=== PATIENT | female | born 1995 | race Caucasian/White ===

== ENCOUNTER 2023-08-14 04:40 | Inpatient (IN) | payer OTHER, SELFPAY ==
[2023-08-14] VITALS (109 sets, daily range): BP systolic 92–129; BP diastolic 46–99; PULSE 55–97; RESP 12–18; TEMP 36.3–37.2; O2SAT 97–100; BMI 28.3
--- NOTE | 2023-08-14 05:27 | LDADM ---
This patient, Nivia Zimmer, was admitted to Labor/Delivery/Recovery 104 on 08/14/23 at 04:40. Plans for labor, pain management and were discussed with patient. Patient/family oriented to hospital policies and general routines including ID bracelet, bed and alarms, visiting hours, pain management, procedures, bathroom and other care routines, personal items, smoking policy, room service/diet and guest tray routines, security routines, and visiting hours. Patient/Family are encouraged to report perceived risks to care and to ask questions if they do not understand what they are told or what they should do. See OBIX for further documentation.
[2023-08-14] MEDS: LACTATED RINGERS 1,000 ML 125 ML IV CONT ×2 (06:01→07:04)
[2023-08-14 06:47] LABS: Basophils Absolute Auto 0.1 K/mm3 (0.0-0.1); Basophils Percent Auto 0.4 % (0.2-1.2); Eosinophils Absolute Auto 0.1 K/mm3 (0-0.3); Eosinophils Percent Auto 0.4 % (0-4.4); Hematocrit 31.1 % (37.0-47.0); Hemoglobin 9.7 g/dL (12.0-15.0); Immature Granulocyte Absolute 0.27 K/mm3 (0.00-0.031); Immature Granulocyte Percent A 1.7 % (0-0.5); Immature Platelet Fraction Pct 15.1 % (0.9-11.2); Lymphocytes Absolute Auto 1.98 K/mm3 (0.9-3.2); Lymphocytes Percent Auto 12.1 % (18.3-44.2); Mean Corpuscular HGB Conc 31.2 g/dl (32-36); Mean Corpuscular Volume 73.7 fl (80-100); Monocytes Absolute Auto 0.8 K/mm3 (0.1-0.6); Monocytes Percent Auto 4.7 % (2.6-8.5); Neutrophils Absolute Auto 13.2 K/mm3 (1.3-6.7); Neutrophils Percent Auto 80.7 % (45.5-73.1); Platelet Count Result 139 k/mm3 (150-375); Red Blood Count 4.22 M/mm3 (4.2-5.4); Red Cell Distribution Width 15.2 % (11.5-14.5); White Blood Count 16.3 K/mm3 (4.5-10.0)
[2023-08-14 07:00] LABS: Hypochromasia 1+ (NORMAL); Microcytosis 1+ (NORMAL); Schistocytes None Seen (NORMAL); Tear Drop Cells 1+ (NORMAL)
[2023-08-14 07:01] LABS: HIV 1/2 Ab P24 Ag Result Negative (Negative)
--- NOTE | 2023-08-14 07:03 | WPDANESEPP ---
Anes - Eval Pre Procedure Procedure: labor epidural Date/Time: 08/14/23 07:03 Surgeon: Jovon Preop Diagnosis: pain during labor Pre Op Diagnosis: Induction of Labor Patient Data Age: 28 Gender: F Height: 1.65 m Weight: 77.111 kg Last Vital Signs Pulse 64 08/14/23 05:45 BP 114/68 08/14/23 05:45 O2 Del Method Room Air 08/14/23 05:26 Allergies Allergy/AdvReac Type Severity Reaction Status Date / Time Sulfa (Sulfonamide Allergy Hives Verified 07/14/23 13:41 Antibiotics) Home Medications Medication Instructions Recorded Confirmed Type loratadine 10 mg tablet (Claritin) mg 07/14/23 History prenat.vits,clayton,ifh-kynl-bjoyj tablet 07/14/23 History Laboratory Tests 08/14/23 08/14/23 05:37 06:38 WBC 16.3 H K/mm3 (4.5-10.0) RBC 4.22 M/mm3 (4.2-5.4) Hgb 9.7 L g/dL (12.0-15.0) Hct 31.1 L % (37.0-47.0) MCV 73.7 L fl (80-100) MCH 23.0 L pg (26-34) MCHC 31.2 L g/dl (32-36) RDW 15.2 H % (11.5-14.5) Plt Count 139 L k/mm3 (150-375) MPV TNP Immature Gran % (Auto) 1.7 H % (0-0.5) Neut % (Auto) 80.7 H % (45.5-73.1) Lymph % (Auto) 12.1 L % (18.3-44.2) Dolores % (Auto) 4.7 % (2.6-8.5) Eos % (Auto) 0.4 % (0-4.4) Baso % (Auto) 0.4 % (0.2-1.2) Lymph # (Auto) 1.98 K/mm3 (0.9-3.2) Dolores # (Auto) 0.8 H K/mm3 (0.1-0.6) Eos # (Auto) 0.1 K/mm3 (0-0.3) Baso # (Auto) 0.1 K/mm3 (0.0-0.1) Abs Immat Gran (auto) 0.27 H K/mm3 (0.00-0.031) Absolute Neuts (auto) 13.2 H K/mm3 (1.3-6.7) Absolute Nucleated RBC 0.0 K/mm3 (0.0-0.012) Nucleated RBC % 0.0 % (0.0-0.2) Platelet Estimate Slightly decreased (Adequate) % Immature Plt Fraction 15.1 H % (0.9-11.2) Hypochromasia 1+ (NORMAL) Microcytosis 1+ (NORMAL) Tear Drop Cells 1+ (NORMAL) Schistocytes None seen (NORMAL) RPR Pending HIV 1&2 Ab/P24 Ag 4thGn Negative (Negative) Blood Type O Positive Antibody Screen Pending Patient hx anesthesia problems: none Family hx anesthesia problems: none Results Review: All pre-operative results and documents have been reviewed as part of the pre-operative evaluation. [facility] Social History Social History Smoking status: Never smoker Second hand tobacco smoke exposure: Yes Substance use: never Lack of Transportation: No Lack of Food: Never True Current Housing: I Have Housing Concerned About Future Housing: No Difficulty Paying Gas/Electric Bills: No Difficulty Paying for Meds: No Currently Unemployed: No Education: Bachelor's Degree Difficulty w/ Childcare or Family Care: No Spiritual care concerns: No Exam Day of Procedure 08/14/23 07:03 Patient weight: normal Heart: regular rate and rhythm Lungs: normal air movement Airway: Mallampati scale class II Neurological: alert and oriented
--- NOTE | 2023-08-14 09:34 | WPDOBADMIT ---
Obstetrics - Admit Note Admission Note: record reviewed. Additions to the history and/or subsequent changes in the physical findings follow. 28 y/o G1 at 40 3/7 weeks here with contractions. Labor diagnosed. Now comfortable with epidural. GBS neg. AVSS NST reactive TOCO: contractions every 2-3 min ABD soft, nontender, gravid, vertex EXT nontender Cervix 7-8/100/-1. AROM with clear fluid. Vertex. A: IUP at term with labor. P: Anticipate .
[2023-08-14] MEDS: OXYTOCIN 30 UNITS/NS 500 ML 30 UNITS/500 ML BAG 999 UNITS IV CONT (11:44)
--- NOTE | 2023-08-14 12:01 | PM.OBPRVD ---
OB - Vaginal Delivery Note Procedure Delivery date: 08/15/23 Induction method: None Delivery augmentation: Rupture of Membranes Delivery monitor: External FHT and External Uterine Route of delivery: Episiotomy description: None Laceration Description: Periurethral (right) and Perineal - 2nd Degree Delivery repair: vicryl (3-0) Specimen: Yes (cord blood) Quantitative Blood Loss (ml): 80 Anesthesia type: Epidural Disposition: PACU Complications: None Narrative: 28 y/o G1 at 40 3/7 weeks gestation who presented to the hospital with contractions. Labor was diagnosed. She received an epidural. Amniotomy was performed with return of clear fluid. Her labor progressed without stimulation, and her cervix dilated completely. She pushed with good effort and delivered the infant's head to the perineum, followed by the body. The nose and mouth were bulb suctioned. After a delay, the cord was clamped and cut. The was handed off the field. Cord blood was collected. The placenta delivered spontaneously and was grossly normal in appearance. The usual 3 vessel cord was noted. A second degree midline perineal laceration was sustained. This was reapproximated using 3 0 Vicryl in the usual layered fashion. A right periurethral laceration was reapproximated using a single figure of eight suture of the same material. Excellent hemostasis resulted as did excellent reapproximation of the normal anatomy. Needle and instrument counts were correct. The patient was taken to recovery room in stable condition. The went to the nursery in stable condition. I was present and scrubbed for the entire delivery. Baby Date of : 08/14/23 Time of : 11:41 Weeks of gestation at delivery: 40 gender: Female Weight (pounds): 7 Weight (ounces): 7 presentation: vertex position: Left Occiput Anterior Placenta delivery description: Spontaneous and Normal Configuration Cord Vessel Description: 3 Vessels and Delayed Cord Clamping score one minute: 9 score five minutes: 9
--- NOTE | 2023-08-14 12:03 | PM.OBDSVD ---
DS: Admitting Diagnosis Discharge Date 08/16/23 Admitting Diagnosis IUP at 40 3/7 weeks Labor DS: Discharge Diagnosis Discharge Diagnosis (1) (normal spontaneous vaginal delivery): Code(s): O80 - Encounter for full-term uncomplicated delivery Status: Acute OB - DS: Summary OB Procedures : None OB Procedures Intrapartum: Spontaneous Vag Delivery OB Procedures: : None Peripartum Data Laceration Description: Periurethral (right) and Perineal - 2nd Degree Episiotomy description: None Time Spent with Patient Time attestation: Total time spent providing and/or coordinating discharge services: DS: Data Data Completed and Pending Labs on day of discharge: Labs from last 24 hours 08/14/23 08/14/23 06:38 05:37 WBC 16.3 H RBC 4.22 Hgb 9.7 L Hct 31.1 L MCV 73.7 L MCH 23.0 L MCHC 31.2 L RDW 15.2 H Plt Count 139 L MPV TNP Immature Gran % (Auto) 1.7 H Neut % (Auto) 80.7 H Lymph % (Auto) 12.1 L Mayes % (Auto) 4.7 Eos % (Auto) 0.4 Baso % (Auto) 0.4 Lymph # (Auto) 1.98 Mayes # (Auto) 0.8 H Eos # (Auto) 0.1 Baso # (Auto) 0.1 Abs Immat Gran (auto) 0.27 H Absolute Neuts (auto) 13.2 H Absolute Nucleated RBC 0.0 Nucleated RBC % 0.0 Platelet Estimate Slightly decreased % Immature Plt Fraction 15.1 H Hypochromasia 1+ Microcytosis 1+ Tear Drop Cells 1+ Schistocytes None seen RPR Pending HIV 1&2 Ab/P24 Ag 4thGn Negative Blood Type O Positive Antibody Screen Negative Discharge Plan Discharge Attending physician on discharge: Rey Sigala Discharging Clinician: Rey Sigala Patient Disposition: Home, Self-Care Activity: pelvic rest Diet: regular Discharge Instructions: Call or return if temperature above 100.4? F, increased abdominal pain, increased vaginal bleeding or any new problems. Stand Alone Forms: General Discharge Information Follow-up/Referrals: Rey Sigala MD [Physician] - 6 Weeks Discharge Medications: New ferrous sulfate 325 mg (65 mg iron) tablet 325 mg PO DAILY Qty: 30 0RF ibuprofen 600 mg tablet 600 mg PO Q6H PRN (Reason: cramps) Qty: 30 0RF Continued loratadine [Claritin] 10 mg Tablet prenat.vits,clayton,ccf-rmyn-eizss Tablet Date of admission: 08/14/23 04:40 Primary Care Provider: PHYSICIAN,EMERGENCY MEDICINE SPECIALIST Admitting Provider: Rey Sigala Attending physician on admission: Rey Sigala Condition: Stable
[2023-08-14] MEDS: WITCH HAZEL 40 PADS 1 PAD TOPICAL (14:47)
[2023-08-14] MEDS: BENZOCAINE 20% AER SPR (*SP) 56 GM CAN 1 SPRAY TOPICAL (14:47)
--- NOTE | 2023-08-14 15:02 | OBPPTRN ---
Patient transferred to post room #285 via wheelchair. Support person present. Oriented to unit, room, information board, rooming in, admission packet and security measures. Patient verbalizes understanding.
[2023-08-14] MEDS: POLYSACCHARIDE IRON COMPLEX 150 MG CAPSULE PO (17:14)
[2023-08-14] MEDS: DOCUSATE SODIUM 100 MG CAPSULE PO (17:15)
[2023-08-14] MEDS: IBUPROFEN 600 MG TABLET PO (19:29)
[2023-08-15] MEDS: IBUPROFEN 600 MG TABLET PO ×3 (03:35→16:52)
[2023-08-15 04:55] LABS: Hematocrit 32.2 % (37.0-47.0); Hemoglobin 9.9 g/dL (12.0-15.0)
--- NOTE | 2023-08-15 07:41 | WPDANLDPN2 ---
Anes-Prog Note L&D Date/Time: 08/15/23 07:41 Comfortable throughout: labor and delivery Neuraxial method: epidural Epidural/Spinal procedure site: clean & non-tender Neuro status: Neuro function grossly intact. Cardiovascular status: normal Respiratory status: normal Airway patency: baseline Mental status: baseline Post-Op hydration status: normal Vital Signs: Last Vital Signs Temp 36.8 C 08/14/23 23:00 Pulse 78 08/14/23 23:00 Resp 18 08/14/23 23:00 BP 108/69 08/14/23 23:00 Pulse Ox 99 08/14/23 23:00 O2 Del Method Room Air 08/14/23 23:00 Pain score (VAS): 2/10 I/O: Intake & Output 08/14/23 08/14/23 08/15/23 15:59 23:59 07:59 Intake Total 1500 240 Output Total 150 Balance 1350 240 Post-procedural complaints: none Patient feedback: Patient satisfied with anesthetic care.
[2023-08-15 08:00] VITALS: BP 114/56; PULSE 67; RESP 16; TEMP 36.1; O2SAT 99
[2023-08-15] MEDS: POLYSACCHARIDE IRON COMPLEX 150 MG CAPSULE PO ×2 (08:18→16:53)
[2023-08-15] MEDS: DOCUSATE SODIUM 100 MG CAPSULE PO ×2 (08:18→16:53)
[2023-08-15] MEDS: MULTIVIT/MIN/PREN/FOL AC/IRON TABLET 1 TAB PO (08:18)
--- NOTE | 2023-08-15 08:47 | PM.OBPNVD ---
OB - PN: Subj Subjective Date/time seen: 08/15/23 08:47 Narrative: Pain OK. OB - PN: Obj Data Labs 08/15/23 04:17 Labs: Laboratory Results - last 24 hr 08/15/23 04:17 Hgb 9.9 L Hct 32.2 L OB - PN A/P Plan Comments: A: PPD#1, doing well. P: Routine care. Exam Psych: Other: AVSS ABD soft, nontender, fundus firm EXT nontender
--- NOTE | 2023-08-15 13:24 | PC.NURSE ---
[id number] Introductions were made, then consulted with patient to assess needs related to . Mother led the conversation with her?plans to feed?her infant, the?experience so far and the nipple pain from earlier sessions. Mother works well with her infant with encouragement, education and has good support persons. Encouraged understanding of the benefits of skin to skin (demonstrating unwrapping infant and placing upright on her chest), stimulating with massage touch, changing positions to encourage wakefulness, how to watch for early feeding cues, responsive feeding, hand expression to encourage latching and milk removal, feeding on demand (aiming for 8-12 times in 24 hours, about every 2-3 hours), milk production, building/maintaining a milk supply, duration of feeding, signs of adequate intake/output and how to record on the feeding sheet. Reviewed positioning and ear, shoulder, hip alignment, supporting the breast to facilitate a deep latch, asymmetrical latch (off-center), leading with the chin with a big, open, wide gape and body close to mother. latched optimally to the right, then the left breast in football position. Education given to mother of how to visualize suck/swallow ratios and listen for drinking at the breast which demonstrated well. was able to maintain latch without discomfort to mother. Nipple care reviewed with optimal latch and good positioning. at times latches only to mothers nipple. RN encouraged understanding of the difference between a deep latch versus shallow watching for swallows. Reminding mother of comfort measures of healing with a warm and wet washcloth to rinse breast, then leave open to air-dry as needed. Reviewed good handwashing when or touching the breast/nipples to prevent infection. Resources used to facilitate learning were used with the visual handouts, tool, mom and baby guide. Mother voiced understanding of skin to skin, stimulating with massage touch, responsive feedings, hand expressed colostrum, talking to infant to encourage if it has been 2 -2.5 hours since the start of the last , to call if does not latch, or if there is discomfort with . Resources provided for inpatient/outpatient with feeding sheet, name written on the communication board and the mom/baby guide. Mother voiced understanding of information, demonstrated learning and will call if there is a request for assistance. Reported to the Primary RN.
[2023-08-15 13:35] LABS: Rapid Plasma Reagin Non-Reactive (NonReactive)
[2023-08-15 20:33] VITALS: BP 106/66; PULSE 79; RESP 16; TEMP 37.1; O2SAT 99
[2023-08-16 07:50] VITALS: BP 105/66; PULSE 78; RESP 16; TEMP 37.1; O2SAT 97
[2023-08-16] MEDS: POLYSACCHARIDE IRON COMPLEX 150 MG CAPSULE PO (07:58)
[2023-08-16] MEDS: MULTIVIT/MIN/PREN/FOL AC/IRON TABLET 1 TAB PO (07:58)
[2023-08-16] MEDS: DOCUSATE SODIUM 100 MG CAPSULE PO (07:58)
--- NOTE | 2023-08-16 08:41 | PM.OBPNVD ---
OB - PN: Subj Subjective Date/time seen: 08/16/23 08:41 Narrative: Pain OK. Would like to go home. OB - PN: Obj Data Labs 08/15/23 04:17 Labs: Laboratory Results - last 24 hr 08/14/23 05:37 RPR Non-reactive OB - PN A/P Plan Comments: A: PPD#2, doing well. P: Home to f/u 6 weeks. Exam Psych: Other: AVSS ABD soft, nontender, fundus firm EXT nontender
--- NOTE | 2023-08-16 12:18 | PC.NURSE ---
1015 Patient viewed the discharge video Mother & Baby Care, The First Two Weeks . Patient was given the opportunity and encouraged to ask questions. Patient verbalized understanding of information shared and has been given the mother/baby guide for home reference.
[2023-08-17 11:15] VITALS: BP 101/51; PULSE 66; RESP 18; TEMP 36.8; O2SAT 100
== END 2023-08-16 11:05 | disposition home or self-care (01) | DRG 807 ==
LOC: ANHLDR 12:04 → ANHOB2 15:28
PROVIDERS: Admitting Provider Obstetrics & Gynecology; Visit Provider Obstetrics & Gynecology
DX: O70.1 Second degree perineal laceration during delivery (principal); Z37.0 Single live birth; Z3A.40 40 weeks gestation of pregnancy
CPT/HCPCS: 36415; 85014; 85018; 85025; 85055; 86592; 86703; 86850; 86900; 86901; A9270; G0432; J2590; J2795; J7120

== ENCOUNTER 2025-07-11 07:45 | Outpatient (CLI) | payer OTHER, SELFPAY ==
[2025-07-11 08:38] LABS: Beta HCG Quantitative 4611.10 mIU/ML
== END 2025-07-11 07:46 | disposition home or self-care (01) ==
LOC: ANHLAB 07:48
PROVIDERS: Visit Provider Obstetrics & Gynecology
DX: O20.9 Hemorrhage in early pregnancy, unspecified (principal); Z3A.00 Weeks of gestation of pregnancy not specified
CPT/HCPCS: 36415; 84702

== ENCOUNTER 2025-07-15 08:47 | Outpatient (CLI) | payer OTHER, SELFPAY ==
--- OUTSIDE RECORDS SUMMARY | 2025-07-15 09:11 | XMS_ITS | Clinical Summary ---
Author Organization [facility] Address [address] [place] [id number] Care Team Providers Care Supervisor Dyer Name Role Phone Roberto Johnson MD Primary Care Provider + Allergies Active Allergy Reactions Criticality Noted Date Comments Sulfa (Sulfonamide Antibiotics) Hives,Urticaria Medium 05/20/2016 Medications valACYclovir (VALTREX) 500 mg tablet prn 0 Active etonogestreL (NEXPLANON) 68 mg implantIndications : Contraception Active loratadine (CLARITIN) 10 mg tablet Take 10 mg by mouth daily Active esomeprazole DR (NexIUM) 20 mg capsule TAKE 2 CAPSULES (40 MG TOTAL) BY MOUTH DAILY BEFORE BREAKFAST 30 capsule 3 1 Active Protonix 40 mg EC tablet Take 1 tablet (40 mg total) by mouth daily 3 Active Active Problems Problem Noted Date Diagnosed Date Vaginal bleeding 07/10/2025 of unknown anatomic location 5 Overview (07/12/2025): Telephone Number Lissett Byrd [phone] (home) Home Yes [phone] Spouse No [] PUL Card Given Working Diagnosis: PUL Date presented: 07/12/25 Brief HPI: 30 y.o. at approximately 6w4d (LMP=05/24/2025) presents with PUL. Had bHCG followed at OSH w/ normal rise but came to [facility] Ed w/ cramping/VB Ultrasound: TVUS: Empty uterus, no adnexal masses Rh Status: O Positive [] Rhogam Given Beta Trend: Had betas at [facility] in [place], [place] w/ appropriate rise: 07/01: 230 07/03: 725 07/09: bHCG 2843 ([facility] lab). US w/o YS/FP, no e/o ectopic. 07/12: Spoke to patient over the phone, she had fUS with primary OBGYN ([facility] in [place], [place]) with c/f ectopic, she got MTX, her primary OBGYN will be following her beta trend. She declines to return to [facility] and prefers to follow with her primary OBGYN. Discussed with attending, ok to discharge from our BB follow list. Lab Results Component Value Date HCG 2,843.0 (H) 07/09/2025 PLAN Next beta due: N/A, will follow with primary OBGYN in [place] Contraception: TBD [x] Signed out with attending and okay to remove from beta book. Attending Name: Amy Carlisle Gastroesophageal reflux disease 04/24/2021 Syncope 03/21/2014 Estimated Date of Delivery Comme nts Yes 02/28/2026 Based on last me nstrual period of 05/24/2025 Encounters Date Type Department Care Team Description 07/12/[address] [facility] [address] [place] [address] Anu Riley MD 07/09/2025 3:03 PM CDT - 07/09/2025 7:36 PM CDT Emergency [facility] Emergency Department [address] [place] [phone] Adrian Mccain MD Vaginal bleeding (Primary Dx); Left lower quadrant abdominal pain Discharge Disposition: Discharge to home or self care from Last 3 Months Surgical History Surgery Date Site/Laterality Comments APPENDECTOMY Medical History Medical History Date Comments GERD (gastroesophageal reflux disease) Family History Medical History Relation Name Comments Hypertension Mother Relation Name Status Comments Mother Social History Tobacco Use Types Packs/Day Years Used Date Smoking Tobacco: Never Personal Safety Answer Date Recorded Have you ever been in or are you currently in a harmful physical or emotional relationship or is someone making you feel afraid or unsafe? Denies 07/09/2025 Estimated Date of Delivery Comme nts Yes 02/28/2026 Based on last me nstrual period of 05/24/2025 Sex and Gender Information Value Date Recorded Sex Assigned at Not on file Legal Sex Female 10:32 PM TROUBLE LOCATER Gender Identity Not on file Sexual Orientation Not on file Obstetrics History Para Term AB IAB SAB Ectopic Multiple Livin g Live Births 2 1 1 1 1 Date Outcome GA Total Labor Labor/2nd/3rd Weight Sex Type Anes PTL Lolis A1 A5 Name Clin Term Vaginal Living Current Summary Episode Dates Number of Fetuses Estimated Date of Delivery 07/09/2025 - Present (07/15/2025) 02/28/2026 (set by Bette Hinton MD on 07/09/2025 based on Last Menstrual Period on 05/24/2025) Dating Summary Based On SUSANA GA Diff Last Menstrual Period on 05/24/2025 02/28/2026 Working Vitals Pregravid Weight Height TWG (As of 07/15/2025) Pregrav id BMI 165.1 cm (5' 5) Date GA Fund Present FHR Mvmt BP Weight Edema Alb Glu Ket Dil/ Eff/Sta 6w4d Inpatient data not displayed here. See encounter summary. Last Filed Vital Signs Vital Sign Reading Time Taken Comments Blood Pressure 121/68 07/09/2025 7:35 PM CDT Pulse 87 07/09/2025 7:35 PM CDT Temperature 37 C (98.6 F) 07/09/2025 2:22 PM CDT Respiratory Rate 18 07/09/2025 7:35 PM CDT Oxygen Saturation 97% 07/09/2025 2:22 PM CDT Inhaled Oxygen Concentration - - Weight 73.5 kg (162 lb) 07/09/2025 2:22 PM CDT Height 165.1 cm (5' 5) 07/09/2025 2:22 PM CDT Body Mass Index 26.96 07/09/2025 2:22 PM CDT Plan of Treatment Health Maintenance Due Date Last Done Comments Cervical Cancer Screening 1997 Depression Screening 1997 Hepatitis C Screening 1997 Meningococcal B Vaccine (1 o f 4 - Increased Risk) 05/24/2009 04/26/2009 Regular Well Visit/Exam 18-64 2015 Pneumococcal vaccine <65 (1 of 2 - PCV) 2016 HPV Vaccines (1 - 3-dose SCD M series) 2024 Influenza Vaccine (#1) 2025 , 08/05/2023, 08/24/2022, Additional history exists DTaP/Tdap/Td Vaccine (8 - Td or Tdap) 06/07/2033 06/07/2023, 08/25/2018, 04/26/2009, Additional history exists Hepatitis B Screening Completed 02/26/1998 , 1997, 1997 Varicella Vaccines Completed 04/18/2007, 04/19/2002 Procedures Procedure Name Priority Date/Time Associated Diagnosis Comments POCT GLUCOSE DEVICE Routine 07/09/2025 5 :32 PM CDT POCUS FEMALE TVUS, 07/09/2025 4:21 PM CDT URINALYSIS, MICROSCOPIC ONLY Routine 07/09/2025 3:58 PM CDT URINALYSIS AND REFLEX TO MICROSCOPIC AND CULTURE Routine 07/09/2025 3:58 PM CDT COMPREHENSIVE METABOLIC PANEL STAT 07/09/2025 2:50 PM CDT EGFR STAT 07/09/2025 2:50 PM CDT DIFFERENTIAL AUTO STAT 07/09/2025 2:5 0 PM CDT ABO/RH STAT 07/09/2025 2:50 PM CDT HCG, BLOOD, QUANTITATIVE STAT 07/09/2025 2:50 PM CDT CBC WITH AUTO DIFFERENTIAL STAT 07/09/2025 2:50 PM CDT from Last 3 Months Results * POCT glucose (07/09/2025 5:32 PM CDT) Glucose, POC 88 70 - 199 mg/dL Blood 07/09/2025 5:32 PM CDT 07/09/2025 5:32 PM CDT Adrian Mccain MD LAB POCT ORDERABLES - DEVICE Final Result [facility] Department [place] [address] * POCUS Female TVUS, (07/09/2025 4:21 PM CDT) Anatomical Region Laterality Modality Other 07/09/2025 4:11 PM CDT Narrative 07/09/2025 4:27 PM CDT Performed by: Ming Bustos TVUS: Exam Information: Exam type: Diagnostic Indication(s) for Exam: Quantitative hCG (+) Findings: IUP: Indeterminate Intrauterine contents : Non-specific endometrial fluid collection Pelvic free fluid: Small Interpretation: of undetermined location (PUL) Electronically signed by Adrian Mccain on Wednesday, July 09, 2025 at 4:27 PM I have reviewed the images & the resident's interpretation. I agree with the findings. Images on file. Electronically signed by Wesly Mix on Wednesday, July 09, 2025 at 5:28 PM I have reviewed the images & the resident's interpretation. I agree with the findings. Images on file. Procedure Note Adrian Mccain MD - 07/09/2025 Performed by: Ming Bustos TVUS: Exam Information: Exam type: Diagnostic Indication(s) for Exam: Quantitative hCG (+) Findings: IUP: Indeterminate Intrauterine contents : Non-specific endometrial fluidcollection Pelvic free fluid: Small Interpretation: of undetermined location (PUL) Electronically signed by Adrian Mccain on Wednesday, July 09, 2025 at4:27 PM I have reviewed the images & the resident's interpretation. I agree withthe findings. Images on file. Electronically signed by Wesly Mix on Wednesday, July 09, 2025 at5:28 PM I have reviewed the images & the resident's interpretation. I agree withthe findings. Images on file. us Adrian Mccain MD POCUS ORDERABLES Edite d Result - Final * (ABNORMAL) Urinalysis reflex to microscopic and culture Urine (07/09/2025 3:58 PM CDT) Color, ur Straw Yellow Clarity, ur Clear Clear [facility] Specific gravity, ur 1.006 1.003 - 1.030 [facility] pH, urine 6.5 [facility] Comment: Interpretive Data U rine pH is affected by diet, medications, systemic acid-base disturbances, and renal tubular function. pH may affect urinary stone formation. For example, urine pH below 6.0 may help reduce the tendency for calcium phosphate stones and pH greater than 6.0 may reduce the tendency for uric acid stone formation. Source: [facility] [employer] Current Interpretive Data was last revised on 2017 Protein, ur ql Negative Negative [facility] Glucose, ur ql Negative Negative [facility] Ketones, ur Negative Negative [facility] Bilirubin, ur Negative Negative [facility] Blood, ur 2+(A) Negative [facility] Urobilinogen, ur <2.0 <2.0 mg/dL [facility] Nitrite, ur Negative Negative [facility] Leukocyte esterase, ur Negative Negative [facility] UA reflex comment Reflex to microscopic UA will be performed. [facility] Urine 07/09/2025 3:58 PM CDT 07/09/2025 4:05 PM CDT us Morgan Montero MD LAB MICROBIOLOGY - GENER AL ORDERABLES Final Result [facility] Department [place] [address] * (ABNORMAL) Urinalysis, microscopic only (07/09/2025 3:58 PM CDT) WBC, ur 0-5 0 - 5 /HPF RBC, ur 0-2 0 - 2 /HPF [facility] Epithelial cells, squamous, ur 1-5 0 - 5 /HPF [facility] Bacteria, ur Trace(A) [facility] Culture Reflex Comment Reflex conditions for urine culture (WBC >10) not met. [facility] Urine 07/09/2025 3:58 PM CDT 07/09/2025 4:05 PM CDT us Morgan Montero MD LAB URINE ORDERABLES Fin al Result Performing Organization Address [facility] Co de Phone Number [facility] Department [place] [address] * eGFR (07/09/2025 2:50 PM CDT) Pathologist [facility] eGFR >90 >=60 mL/min/1. 73 m2 Comment: Interpretive Data Reference Interval Normal >/= 90 mL/min/1.73m2 Mildly decreased* 60 - 89 mL/min/1.73m2 Mildly to moderately decreased 45 - 59 mL/min/1.73m2 Moderately to severely decreased 30 - 44 mL/min/1.73m2 Severely decreased 15 - 29 mL/min/1.73m2 Kidney Failure < 15 mL/min/1.73m2 *Relative to young adult level Estimated glomerular filtration rate is determined by the 2020 CKD-EPI equation recommended by the National Kidney Foundation (A Unifying Approach to GFR Estimation: Recommendations of the NKF-ASK Task Force on Reassessing the Inclusion of Race in Diagnosing Kidney Disease, JASN 202). The CKD-EPI equation should not be used for patients with unstable renal function and has not been validated in children and those over 70. Current interpretive data was last reviewed 2021. Blood 07/09/2025 2:50 PM CDT 07/09/2025 3:51 PM CDT us Adrian Mccain MD LAB BLOOD ORDERABLES F inal Result Performing Organization Address [facility] Co de Phone Number [facility] Department [place] [address] * Differential, auto (07/09/2025 2:50 PM CDT) Neutrophil abs 4.09 1.50 - 6.50 K/cumm Imm gran abs 0.03 0.00 - 0.10 K/cumm [facility] Lymphocyte abs 2.47 0.80 - 3.30 K/cumm [facility] Monocyte abs 0.51 0.20 - 0.80 K/cumm [facility] Eosinophil abs 0.05 0.00 - 0.50 K/cumm [facility] Basophil abs 0.04 0.00 - 0.10 K/cumm [facility] Neutrophil pct 56.8 % [facility] Comment: Interpretive Data Percent cell count reference ranges are not reported, since discordance with absolute values may lead to misinterpretation of CBC data. Current Interpretive Data was last revised on 2018. Imm gran pct 0.4 % [facility] Comment: Interpretive Data Percent cell count reference ranges are not reported, since discordance with absolute values may lead to misinterpretation of CBC data. Current Interpretive Data was last revised on 2018. Lymphocyte pct 34.4 % [facility] Comment: Interpretive Data Percent cell count reference ranges are not reported, since discordance with absolute values may lead to misinterpretation of CBC data. Current Interpretive Data was last revised on 2018. Monocyte pct 7.1 % [facility] Comment: Interpretive Data Percent cell count reference ranges are not reported, since discordance with absolute values may lead to misinterpretation of CBC data. Current Interpretive Data was last revised on 2018. Eosinophil pct 0.7 % [facility] Comment: Interpretive Data Percent cell count reference ranges are not reported, since discordance with absolute values may lead to misinterpretation of CBC data. Current Interpretive Data was last revised on 2018. Basophil pct 0.6 % [facility] Comment: Interpretive Data Percent cell count reference ranges are not reported, since discordance with absolute values may lead to misinterpretation of CBC data. Current Interpretive Data was last revised on 2018. Blood 07/09/2025 2:50 PM CDT 07/09/2025 3:51 PM CDT us Leah Santos MD LAB BLOOD ORDERABLES Monica l Result Performing Organization Address [facility] Co de Phone Number [facility] Department [place] [address] * (ABNORMAL) CBC with auto differential (07/09/2025 2:50 PM CDT) Pathologist [facility] WBC 7.19 3.80 - 9.90 K/cumm Hgb 10.1(L) 11.9 - 15.5 g/dL [facility] Hct 31.5(L) 35.6 - 45.5 % [facility] Plt 177 150 - 400 K/cumm [facility] MPV Not Measured 9.1 - 12.3 fL [facility] RBC 4.68 3.90 - 5.20 M/cumm [facility] MCV 67.3(L) 81.3 - 96.4 fL [facility] MCH 21.6(L) 27.1 - 33.3 pg [facility] MCHC 32.1(L) 32.3 - 35.7 g/dL [facility] RDW CV 16.4(H) 11.1 - 14.9 % [facility] RDW SD 38.7 35.7 - 48.1 fL [facility] NRBC abs 0.00 0.00 - 0.01 K/cumm [facility] Blood Venous blood specimen / Unknown 07/09/2025 2:50 PM CDT 07/09/2025 3:51 PM CDT Adrian Mccain MD LAB BLOOD ORDERABLES F inal Result Performing Organization Address [facility]/ZIP Co de Phone Number [facility] Department [place] [address] * ABO/Rh (07/09/2025 2:50 PM CDT) [facility] ABO Rh O Positive Blood 07/09/2025 2:50 PM CDT 07/09/2025 3:56 PM CDT Adrian Mccain MD LAB BLOOD BANK TEST OR DERABLES Final Result Performing Organization Address [facility] de Phone Number [facility] [place] [place] [address] * (ABNORMAL) hCG, blood, quantitative (07/09/2025 2:50 PM CDT) hCG, quant 2,843.0(H ) 0.0 - 5.0 IUn[facility]/L Comment: Interpretive Data Male: < 5 IU/L Non- premenopausal Female: <5 IU/L [employer] hCG Beta Quant assay procedure was used. Results from different manufacturers or methods may not be comparable. Serial testing should be performed using the same method. Interpretive Data was last revised on 2023 Blood 07/09/2025 2:50 PM CDT 07/09/2025 3:51 PM CDT Adrian Mccain MD LAB BLOOD ORDERABLES F inal Result Performing Organization Address [facility] de Phone Number [facility] Department [place] [employer] [place] [address] * Comprehensive metabolic panel (07/09/2025 2:50 PM CDT) [facility] Sodium 137 135 - 145 mmol/L Potassium, pl 3.9 3.3 - 4.9 mmol/L [facility] Chloride 105 97 - 110 mmol/L [facility] CO2 25 22 - 32 mmol/L [facility] Anion gap 7 2 - 15 mmol/L [facility] BUN 12 6 - 25 mg/dL [facility] Creatinine 0.81 0.60 - 1.10 mg/dL [facility] Glucose 80 70 - 199 mg/dL [facility] Comment: Interpretive Data Fasting glucose >/= 126 mg/dl is diagnostic for diabetes. Fasting is defined as no caloric intake for at least 8 hours. Fasting glucose between 100 mg/dl to 125 mg/dl is diagnostic of prediabetes. In a patient with classic symptoms of hyperglycemia or hyperglycemic crisis, a random glucose >/= 200 mg/dl is diagnostic for diabetes. In the absence of unequivocal hyperglycemia, results should be confirmed by repeat testing. The classification and Diagnosis of Diabetes Diabetes Care 202; 46: S19-S40. Current interpretive data was last revised 2022. Calcium 9.4 8.5 - 10.3 mg/dL [facility] Bilirubin, total 0.8 0.1 - 1.2 mg/dL [facility] Protein, pl 7.2 6.5 - 8.5 g/dL [facility] Albumin 4.3 3.5 - 5.0 g/dL [facility] Alk phos 61 40 - 130 Units/L [facility] ALT 20 7 - 45 Units/L [facility] AST 24 10 - 45 Units/L [facility] Blood 07/09/2025 2:50 PM CDT 07/09/2025 3:51 PM CDT Adrian Mccain MD LAB BLOOD ORDERABLES F inal Result [facility] Department [place] [address] from Last 3 Months Insurance [facility] [employer] [employer] Address: [facility] [id number] [place] [address] [facility] [employer] Address: [address] [place] [address] [facility] [employer] Address: [address] [place] [address] Care Teams Supervisor Dyer Relationship Specialty Start Date End Date Roberto Johnson MD PCP - General 04/25/20
[2025-07-15 09:52] LABS: Hematocrit 32.6 % (37.0-47.0); Hemoglobin 9.9 g/dL (12.0-15.0); Immature Platelet Fraction Pct 5.6 % (0.9-11.2); Mean Corpuscular HGB Conc 30.4 g/dl (32-36); Mean Corpuscular Hemoglobin 21.2 pg (26-34); Mean Corpuscular Volume 70.0 fl (80-100); Platelet Count Result 164 k/mm3 (150-375); Red Blood Count 4.66 M/mm3 (4.2-5.4); White Blood Count 6.1 K/mm3 (4.5-10.0)
[2025-07-15 11:00] LABS: Alanine Aminotransferase 18 U/L (6-35); Albumin Level 4.3 g/dL (3.5-5.1); Alkaline Phosphatase 55 U/L (38-126); Anion Gap 8 mmol/L (4-12); Aspartate Amino Transferase 24 U/L (14-36); Bilirubin,Total 0.8 mg/dL (0.2-1.3); Blood Urea Nitrogen 12 mg/dL (7-17); Calcium 8.9 mg/dL (8.4-10.2); Carbon Dioxide 24 mmol/L (22-30); Chloride 105 mmol/L (98-107); Estimated Glomerular Filt Rate > 60; Glucose 87 mg/dL (65-110); Potassium 4.0 mmol/L (3.4-5.0); Sodium 137 mmol/L (137-145); Total Protein 6.9 g/dL (6.3-8.2)
[2025-07-15 11:16] LABS: Beta HCG Quantitative 5658.90 mIU/ML
== END 2025-07-15 08:48 | disposition home or self-care (01) ==
PROVIDERS: Visit Provider Obstetrics & Gynecology
DX: O00.90 Unspecified ectopic pregnancy without intrauterine pregnancy (principal); Z3A.00 Weeks of gestation of pregnancy not specified
CPT/HCPCS: 36415; 80053; 84702; 85027; 85055

== ENCOUNTER 2025-07-18 10:48 | Outpatient (CLI) | payer OTHER, SELFPAY ==
[2025-07-18 12:33] LABS: Beta HCG Quantitative 3753.70 mIU/ML
--- OUTSIDE RECORDS SUMMARY | 2025-07-18 12:43 | XMS_ITS | Clinical Summary ---
Author Organization [facility] Address [facility] [place] [address] Care Team Providers Care Bit And Shank Department Supervisor Name Role Phone Zaheer Degroot MD Unavailable [phone] Rey Sigala MD Unavailable [phone] None, Provider MD Primary Care Provider Unavaila ble Allergies Active Allergy Reactions Criticality Noted Date Comments Sulfa Antibiotics Hives Low 05/20/2016 Medications loratadine 10 MG tablet Take 1 tablet (10 mg total) by mouth daily. Active FLUoxetine (PROZAC) 20 MG capsule Take 1 capsule (20 mg total) by mouth daily. 4 Active pantoprazole EC (PROTONIX) 40 MG tablet Take 1 tablet (40 mg total) by mouth daily. 3 Active terbinafine (LAMISIL) 250 MG tablet Take 1 tablet (250 mg total) by mouth daily. 5 Active dextromethorpha n-guaiFENesin ER (MUCINEX DM) 30-600 MG TABLET SR 12 HR 12 hr tabletIndicatio ns:Acute cough,Fluid level behind tympanic membrane of both ears,Acute viral bronchitis Take 1 tablet by mouth every 12 (twelve) hours as needed. 28 tablet 5 Active Additional Information Patient not taking.Reported on 05/24/2025 methylPREDNISol DARSHAN roldan, (MEDROL DOSEPAK) 4 MG tabletIndicatio ns:Acute cough,Fluid level behind tympanic membrane of both ears,Acute viral bronchitis Take 1 tablet (4 mg total) by mouth daily. 6 TABLETS ON DAY ONE, 5 TABLETS DAY TWO, 4 TABLETS DAY THREE, 3 TABLETS DAY FOUR, 2 TABLETS DAY FIVE, AND 1 TABLET DAY SIX 1 each 5 Active Additional Information Patient not taking.Reported on 05/24/2025 Active Problems Problem Noted Date Diagnosed Date Thalassemia minor 11/05/2020 Hypotensive lower esophageal sphincter 1 Vitamin D deficiency 06/12/2019 Assessment & Plan (06/12/2019 8:20 AM CDT): Management per obstetrics/gynecology. BMI 25.0-25.9,adult 08/25/2018 Medication management 08/25/2018 Assessment & Plan (06/12/2019 8:19 AM CDT): Checking routine labs today (see orders) for ongoing medication monitoring. Eosinophilic esophagitis 05/19/2018 Assessment & Plan (06/12/2019 8:18 AM CDT): Patient doing well with only occasional breakthrough symptoms, despite high intensity proton pump inhibitor therapy. 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 Encouraged her to do so at her earliest convenience. Continue current treatment. Gastroesophageal reflux 12/27/2017 Genital herpes 12/27/2017 Assessment & Plan (06/12/2019 8:19 AM CDT): Management per faculty i on call medical assistant-family practitioner. Symptomatic treatment only at this time. Stable. Resolved Problems Problem Noted Date Diagnosed Date Resolved Date Wears glasses 12/27/2017 06/13/2020 Encounters Date Type Department Care Team Description 05/29/2025 10:10 AM CDT - 05/29/2025 11:59 PM CDT Hospital Encounter [facility] [address] [place] [address] Daisy Mueller MD Discharge Disposition: Home or Self Care (Routine Discharge) 05/29/2025 Orders Only [facility] [address] [place] [address] Daisy Mueller MD 05/29/2025 Travel 05/24/2025 10:26 AM CDT - 05/24/2025 11:59 PM CDT Hospital Encounter [facility] [address] [place] [address] Ana Kirk PA Discharge Disposition: Home or Self Care (Routine Discharge) 05/24/2025 9:20 AM CDT Office Visit [facility] Internal [address] [phone] Ana Kirk PA Headache (Body aches, left side pain, hurts to take a deep breath X 1 week) 05/24/2025 Travel 05/22/2025 12:00 PM CDT Office Visit [address] [place] [address] Naren Lovelace MD Body Aches; Fever; Headache; Shortness Of Breath ; Chest Discomfort (Patient states she was seen on 05/14 for sore throat. Sore throat resolved. States symptoms listed started 6 days ago. ) 05/22/2025 Telephone [facility] [address] [address] Rosangela Joyner, DISTRICT AGENT-BC Other (Cold S/S not resolved ) 05/22/2025 Travel 05/16/2025 Results Follow-Up [facility] [address] [place] [id number] Bhavya Cabrera DO STREP A, DNA 05/14/2025 11:18 AM CDT - 05/14/2025 11:59 PM CDT Hospital Encounter [facility] [address] [place] [address] Bhavya Cabrera DO Discharge Disposition: Home or Self Care (Routine Discharge) 05/14/2025 7:40 AM CDT Office Visit [facility] [address] [place], [place] [id number] Bhavya Cabrera DO Sore Throat (X 5 days); Headache; Earache 05/14/2025 Travel from Last 3 Months Immunizations Immunization Administration Dates Next Due Dtap (Generic) 04/19/2002, 8,1997,07/24 Flucelvax 6 Months+ (Prefill ed Syringe) 07/02/2020 Fluzone 6 Months+ Quad (0.5 mL Prefilled Syringe) 07/11/2019 Hepatitis A 04/26/2009,04/18/2007 Hepatitis B 02/26/1998,1997,1997 Hib 03/17/1998,1997,1997 Influenza (Generic) 07/11/2024 Influenza 3 yrs + with Prese rvative (Fluzone) 08/16/2018 Influenza Adult (Generic) 08/05/2023,,07/07/2021,08/16 MMR 04/19/2002,05/30/1998 Meningococcal 04/26/2009 PFIZER COVID-19 (ORIGINAL FO RMULATION, PURPLE CAP) mRNA, LNP-S, PF, 30 MCG/0.3 ML DOSE 2021 Polio IPV (Ipol) 04/20/2002, 9,1997,07/24 Tdap (Generic) 06/07/2023,04/26/2009 Tdap (Historical Only-select from magnify glass) 08/25/2018 Varicella Vaccine 04/18/2007,04/19/2002 Family History Medical History Relation Comments Hypertension Mother Relation Status Comments Mother Social History Tobacco Use Types Packs/Day Years Used Date Smoking Tobacco: Never Smokeless Tobacco: Never Tobacco Cessation:Counseling Given: No Comments:non-smoker Alcohol Use Standard Drinks/Week Comments Yes 0 (1 standard drink = 0.6 oz pur e alcohol) social AUDIT-C Answer Date Recorded Frequency of Alcohol Consumption Never 10/31/2020 Average Number of Drinks Not on file 021 Frequency of Binge Drinking Not on file 10/04 PHQ-2 Answer Date Recorded Patient Health Questionnaire-2 Score 0 01/08/2025 Comments No Sex and Gender Information Value Date Recorded Sex Assigned at Female 11/03/2024 10:35 AM COMPUTER TECHNOLOGY TRAINER Legal Sex Female 8:25 PM CDT Gender Identity Not on file Sexual Orientation Not on file Last Filed Vital Signs Vital Sign Reading Time Taken Comments Blood Pressure 90/66 05/24/2025 9:40 AM CDT Pulse 80 05/24/2025 9:40 AM CDT Temperature 36.8 C (98.2 F) 05/24/2025 9:40 AM CDT Respiratory Rate 18 05/24/2025 9:40 AM CDT Oxygen Saturation 98% 05/24/2025 9:40 AM CDT Inhaled Oxygen Concentration - - Weight 73.9 kg (163 lb) 05/24/2025 9:40 AM CDT Height 165.1 cm (5' 5) 05/24/2025 9:40 AM CDT Body Mass Index 27.12 05/24/2025 9:40 AM CDT Plan of Treatment Health Maintenance Due Date Last Done Comments Cervical Cancer Screening Pap Smear (Age 21 to 29) Every 3 Years 1997 Cervical Cancer Screening 1997 Hepatitis C 2015 Annual Physical 11/17/2022 11/17/2021 HPV Vaccines (1 - 3-dose SCDM series) 2024 COVID-19 Vaccine ( season) 2025 05/18/2021, 2021 Influenza Adult (#1) 2025 07/11/2024, 08/05/2023, 08/24/2022, Additional history exists DTaP, Tdap and Td Vaccines (8 - Td or Tdap) 06/07/2033 06/07/2023, 08/25/2018, 04/26/2009, Additional history exists Hepatitis B Vaccines Completed 02/26/1998, 1997, 1997 Meningococcal Vaccine Aged Out 04/26/2009 No padmini savanna eligible based on patient's age to complete this topic PHQ-2 (Physician [place]) Completed 01/08/2025 Meningococcal B Vaccine Aged Out No l onger eligible based on patient's age to complete this topic Pneumococcal Vaccine: Pediatrics (0 to 5 Years) and At-Risk Patients (6 to 49 Years) Aged Out No longer eligible based on patient's age to complete this topic RSV Immunizations Under 20 Months Aged Out No longer eligible based on patient's age to complete this topic Procedures Procedure Name Priority Date/Time Associated Diagnosis Comments CBC W/DIFF AUTOMATED Routine 05/29/2025 10:13 AM CDT Encounter for long-term (current) drug use XR CHEST PA+LAT STAT 05/24/2025 10:37 AM CDT Inspiratory pain STREP A, DNA Routine 05/14/2025 7:44 AM CDT Acute sore throat STREP A RAPID Routine 05/14/2025 Acute sore throat from Last 3 Months Results * (ABNORMAL) CBC W/DIFF AUTOMATED (05/29/2025 10:13 AM CDT) [facility] WBC 8.76 4.4 - 11.0 x10'3/uL 05/29/2025 10:[address] [facility] RBC 5.07 4.50 - 5.10 x10'6/uL 05/29/2025 10:[address] [facility] HGB 10.6(L) 12.3 - 15.3 G/DL 05/29/2025 10:[address] [facility] HCT 34.6(L) 35.9 - 44.6 % 05/29/2025 10:[address] [facility] MCV 68.2(L) 80.0 - 96.0 FL 05/29/2025 10:[address] [facility] MCH 20.9(L) 25.3 - 30.9 PG 05/29/2025 10:[address] [facility] MCHC 30.6(L) 31.0 - 34.1 G/DL 05/29/2025 10:[address] [facility] RDW 15.8(H) 12.4 - 15.1 % 05/29/2025 10:[address] [facility] PLT 186 151 - 353 x10'3/uL 05/29/2025 10:[address] [facility] SEG NEUTROPHILS 41(L) 42 - 72 % 11:[address] [facility] LYMPHOCYTES 39 15.8 - 45.0 % 05/29/2025 11:[address] [facility] ATYP. LYMPHS 13 % 05/29/2025 11:[address] [facility] MONOCYTES % 7.0 % 05/29/2025 11:[address] [facility] ABS. NEUTROPHILS 3.59 1.40 - 6.00 x10'3/uL 05/29/2025 11:[address] [facility] ABS. LYMPHOCYTES 4.56 0.80 - 4.70 x10'3/uL 05/29/2025 11:[address] [facility] PLT MORPH. NORMAL 05/29/2025 11:[address] [facility] RBC MORPHOLOGY SLIGHT 05/29/2025 11:[address] [facility] Comment:MICROCYTES WBC MORPHOLOGY NORMAL 05/29/2025 11:[address] [facility] 05/29/2025 10:1 3 AM CDT us Daisy Mueller MD LABORATORY Edited Result - Final [facility] [address] [place] [address], * XR CHEST PA+LAT (05/24/2025 10:37 AM CDT) Anatomical Region Laterality Modality Chest Radiographic Keily ging 05/24/2025 10:3 7 AM CDT Impressions 05/24/2025 10:38 AM CDT IMPRESSION: 1) No radiographic evidence of active disease the chest. and Ordered By: ANA KIRK Interpreted By: Dilshad Cade MD, 05/24/2025 10:37 AM Narrative 05/24/2025 10:38 AM CDT [facility] [address] [place] [address] Examination: XR CHEST PA+LAT Exam time: 05/24/2025 10:34 AM Clinical history: Pain on inspiration Comparison: 05/19/2016 Technique: PA and lateral Findings: Heart size within normal limits. Pulmonary vasculature unremarkable. No significant focal pulmonary parenchymal opacity. No pleural effusion. No hyperinflation. Procedure Note Dilshad Cade MD - 05/24/2025 [facility] [address] [place] [address] Examination: XR CHEST PA+LAT Exam time: 05/24/2025 10:34 AM Clinical history: Pain on inspiration Comparison: 05/19/2016 Technique: PA and lateral Findings: Heart size within normal limits. Pulmonary vasculatureunremarkable. No significant focal pulmonary parenchymal opacity. Nopleural effusion. No hyperinflation. IMPRESSION: 1) No radiographic evidence of active disease the chest. and Ordered By: ANA KIRK Interpreted By: Dilshad Cade MD, 05/24/2025 10:37 AM [facility] Final Result * STREP A, DNA (05/14/2025 7:44 AM CDT) SPECIMEN SOURCE THROAT 11:18 AM CDT [facility] STREP A MOLECULAR NEGATIVE NEGATIVE 025 11:18 PM CDT [facility] Comment:SPECIMEN NEGATIVE FO R GROUP A STREPTOCOCCUS BY DNA AMPLIFICATION STRUCTURE OF ANTERIOR REGION OF NECK / Unknown 05/14/2025 7:44 AM CDT Bhavyagilmar Cabrera DO MICROBIOLOGY - GENERAL ORDERABLE S Final Result [facility] [address] [place] [address], [place] [phone] [facility] [address] [place] [address], [place] * STREP A RAPID (05/14/2025) RAPID STREP TEST NEGATIVE NEGATIVE -[facility] ([address]), [place] Internal Control: [facility] ([address]), [place] STRUCTURE OF ANTERIOR REGION OF NECK / Unknown 05/14/2025 Bhavya Elmer Cabrera DO MICROBIOLOGY - GENERAL ORDERABLE S Final Result Performing Organization Address City/[facility]/ZIP Co de Phone Number [facility] ([address]), [place] [address] [facility] [place] [address], from Last 3 Months Insurance CIG Care Teams Bit And Shank Department Supervisor Relationship Specialty Start Date End Date None, Provider, PCP - General UNKNOWN PHYSICIAN SPECIALTY 05/29/25 Zaheer Degroot MD Consulting Physician GASTROENTEROLOGY 06/12/19 Rey Sigala MD OBGYN 06/12/19
--- OUTSIDE RECORDS SUMMARY | 2025-07-18 12:44 | XMS_ITS | Encounter Summary ---
Author Organization [facility] Address [address] [place] [address] Care Team Providers Care Automation Tester Name Role Phone Zaheer Degroot MD Unavailable [phone] Rey Sigala MD Unavailable [phone] Cesilia Casillas [facility] Primary Care Provider + Rosangela Joyner [facility] Primary Care Provider + None, Provider Primary Care Provider Unavaila ble Encounter Details Date Type Department Care Team (Late st Contact Info) Description 11/17/2021 MyChart Message Enc [facility] Family & Internal Medicine [address] [address] Cesilia Casillas, [facility] [address] [place] [address] Lab results Social History Tobacco Use Types Packs/Day Years Used Date Smoking Tobacco: Never Smokeless Tobacco: Never Alcohol Use Standard Drinks/Week Comments Yes 0 (1 standard drink = 0.6 oz pur e alcohol) social AUDIT-C Answer Date Recorded Frequency of Alcohol Consumption Never 10/31/2020 Average Number of Drinks Not on file 021 Frequency of Binge Drinking Not on file 10/04 PHQ-2 Answer Date Recorded PHQ-2 Score - If the patient scores above 3, please move on to questions 3-9 0 11/17/2021 Comments No Sex and Gender Information Value Date Recorded Sex Assigned at Female 11/03/2024 10:35 AM CHEMICAL ENGINEERING TEACHER Legal Sex Female 8:25 PM CDT Gender Identity Not on file Sexual Orientation Not on file COVID-19 Exposure Response Date Recorded In the last 10 days, have yo u been in contact with someone who was confirmed or suspected to have Coronavirus/COVID-19? No / Unsure 11/17/2021 9:33 AM CHEMICAL ENGINEERING TEACHER documented as of this encounter Progress Notes * Shazia Little RN - 11/18/2021 4:33 PM CST Called and spoke with DJ at [facility] lab, she states she can add these. Orders have been placed. ICAL ENGINEERING TEACHER * CHAR Lopez - 11/18/2021 4:20 PM CST Is it possible to add ferritin and iron panel to her labs? ICAL ENGINEERING TEACHER documented in this encounter Plan of Treatment Not on file documented as of this encounter Results * (ABNORMAL) IRON SAT PANEL (IRON,IBC,%SAT) (11/17/2021 10:10 AM CHEMICAL ENGINEERING TEACHER) [facility] IRON 128 50 - 170 MCG/DL 11/18/2021 5:25 PM CHEMICAL ENGINEERING TEACHER [facility] IRON BINDING CAPACITY 231(L) 250 - 450 MCG/DL 11/18/2021 5:25 PM CHEMICAL ENGINEERING TEACHER [facility] IRON SATURATION 55 20 - 55 % 5:25 PM CHEMICAL ENGINEERING TEACHER [facility] 11/17/2021 10:1 0 AM CHEMICAL ENGINEERING TEACHER Cesilia [facility] Final Re sult [facility] [address] [place] [address], [place] [phone] * FERRITIN (11/17/2021 10:10 AM CHEMICAL ENGINEERING TEACHER) FERRITIN 99.0 8.0 - 388.0 NG/ML 11/18/2021 5:40 PM CHEMICAL ENGINEERING TEACHER [facility] 11/17/2021 10:1 0 AM CHEMICAL ENGINEERING TEACHER Cesilia Casillas [facility] Final Re sult [facility] [address] [place] [address], documented in this encounter Visit Diagnoses Diagnosis Thalassemia minor- Primary Anemia, unspecified documented in this encounter Additional Health Concerns Infection Onset Date Last Indicated Resolved Time COVID-19 Rule Out 11/17/2023 11/17/2023 11/17/2023 11:10 AM CHEMICAL ENGINEERING TEACHER COVID-19 Confirmed 11/17/2023 11/17/2023 12:32 AM CDT COVID-19 Rule Out 06/07/2024 06/07/2024 06/07/2024 9:22 AM CDT COVID-19 Rule Out 11/03/2024 11/03/2024 11/03/2024 10:48 AM CHEMICAL ENGINEERING TEACHER COVID-19 Rule Out 11/24/2024 11/24/2024 11/24/2024 10:51 AM CHEMICAL ENGINEERING TEACHER Influenza - Seasonal 11/24/2024 11/24/2024 025 12:32 AM CHEMICAL ENGINEERING TEACHER Respiratory Rule Out 01/08/2025 01/08/2025 025 9:20 AM CDT Assessment Noted Time PHQ-9 Depression Total Score: 0 11/17/19 9:43 AM CHEMICAL ENGINEERING TEACHER documented as of this encounter Care Teams Automation Tester Relationship Specialty Start Date End Date Cesilia Casillas [facility] PCP - General Nurse Practitioner Family 11/17/21 Rosangela Joyner [facility]- PCP - General Nurse Practitioner Family 07/22/23 5 None, Provider, PCP - General UNKNOWN PHYSICIAN SPECIALTY 05/29/25 Zaheer Degroot MD Consulting Physician GASTROENTEROLOGY 06/12/19 Rey Sigala MD OBGYN 06/12/19 documented as of this encounter
--- OUTSIDE RECORDS SUMMARY | 2025-07-18 12:44 | XMS_ITS | Patient Health Record ---
Author Organization [facility] Address [address] [place] [address] Care Team Providers Care Director Of Food And Beverage Services Name Role Phone Dr. Maya Valdez Primary Care Provider [phone] Allergies Allergen (clinical drug ingredient) Drug/Non Drug Allergy documented on EMR Reaction Allergy Type Onset Date Status Substance with sulfonamide structure and antibacterial mechanism of action (substance) Sulfa Antibiotics hives Drug Allergy Active Reason For Referral No Information Medications Medication SIG (Take, Route, Frequency, Duration) Notes Start Date End Date Status FLUoxetine HCl 20 MG Capsule 1 capsule Orally Once a day Active Claritin Active Protonix 40 MG Tablet Delayed Release 1 tablet 1/2 to 1 hour before morning meal Orally Once a day Active LamISIL Active Social History Tobacco Use: Social History Observation Description Date Details (start date - stop date) Never Smoker NA - NA Social History Tobacco Use: Social Info Question Answer Notes Tobacco Control (Standard) Tobacco use: Nonsmoker Additional Details Category Social Info Options Details Drug/Alcohol: Do you drink alcohol? No Problems Problem Type SNOMED Code ICD Code Onset Dates Problem Status W/U Status Risk Notes Problem Generalized anxiety disorder (81805498) Anxiety, generalized (F41.1) Active confirmed Problem Gastroesophageal reflux disease (disorder) (994093961) Chronic GERD (K21.9) Active confirmed Vital Signs Heart Rate 76 /min 06/05/2025 Temperature 97.6 degrees Fahrenheit 06/05/2025 Respiratory Rate 18 /min 06/05/2025 Height-cm 167.64 cm 06/05/2025 Oximetry 98 % 06/05/2025 Blood pressure diastolic 60 mm Hg 06/05/2025 Weight-kg 73.48 kg 06/05/2025 Height 66 in 06/05/2025 Blood pressure systolic 98 mm Hg 06/05/2025 Weight 162 lbs 06/05/2025 BMI 26.14 kg/m2 06/05/2025 Encounters Encounter Location Date Provider Diagnosis [facility] [address] [place] [address] 06/05/2025 Dr. Maya Valdez Anxiety, generalized F41.1 ; Chronic GERD K21.9 and Neck pain on right side M54.2 Assessments Encounter Date Diagnosis (ICD Code) Assessment Notes Treatment Notes Treatment Clinical Notes Section Notes 06/05/2025 Anxiety, generalized (ICD-10 - F41.1) Anxiety:- Anxiety well controlled on fluoxetine, no current concerns or recent panic attacks.- Continue fluoxetine as prescribed. Offered to take over refills if needed. Routine laboratory screening:- Ordered thyroid function tests, comprehensive metabolic panel, and magnesium level. 06/05/2025 Chronic GERD (ICD-10 - K21.9) GERD: - GERD well controlled on Protonix, occasional acid reflux. - Continue Protonix as prescribed. Offered to take over refills if needed. Monitor for symptoms. 06/05/2025 Neck pain on right side (ICD-10 - M54.2) Neck pain with patient concern for possible mass or lymphadenopathy: - No discrete mass palpated, no concerning features on exam. Tense sternocleidomastoid noted. No current evidence of lymphadenopathy. Intermittent discomfort has been noted for the last month or so. - Monitor symptoms. If pain persists for 3-4 weeks or worsens, or if a mass is palpated, order ultrasound of the neck. Patient consented to watchful waiting. Plan Of Treatment Pending Test Test Name Order Date TSH Reflex Free T4 06/05/2025 Comprehensive Metabolic Panel 06/05/2025 Magnesium 06/05/2025 Insurance Providers Payer Name Payer Address Payer Phone Subscriber Number Group Number Insured Name Patient Relationship to Insured Coverage Start Date Coverage End Date Karey Damico [id number] [facility] [place] [address] [id number] Nivia Zimmer Self - patient is the insured Medical (General) History Surgical History Surgery Date(Month/Year) appendectomy rhinoplasty
--- OUTSIDE RECORDS SUMMARY | 2025-07-18 12:44 | XMS_ITS | Encounter Summary ---
Author Organization [facility] Address [address] [place] [address] Care Team Providers Care Rn Geriatric Name Role Phone Zaheer Degroot MD Unavailable [phone] Rey Sigala MD Unavailable [phone] Cesilia Casillas [facility] Primary Care Provider + Rosangela Joyner [facility] Primary Care Provider + None, Provider Primary Care Provider Unavaila ble Encounter Details Date Type Department Care Team (Late st Contact Info) Description 12/10/2021 MyChart Message Enc [facility] Family & Internal Medicine [address] [address] Cesilia Casillas, [facility] [address] [place] [address] Sinus infection Social History Tobacco Use Types Packs/Day Years [...] Sex Assigned at Female 11/03/2024 10:35 AM INSTRUMENT TECH Legal Sex Female 8:25 PM CDT Gender Identity Not on file Sexual Orientation Not on file COVID-19 Exposure Response Date Recorded In the last 10 days, have yo u been in contact with someone who was confirmed or suspected to have Coronavirus/COVID-19? Unable to assess 12/11/2021 3:12 PM INSTRUMENT TECH documented as of this encounter Plan of Treatment Not on file documented as of this encounter Visit Diagnoses Not on filedocumented in this encounter Additional Health Concerns Infection Onset Date Last Indicated Resolved Time COVID-19 Rule Out 11/17/2023 11/17/2023 11/17/2023 11:10 AM INSTRUMENT TECH COVID-19 Confirmed 11/17/2023 11/17/2023 12:32 AM CDT COVID-19 Rule Out 06/07/2024 06/07/2024 06/07/2024 9:22 AM CDT COVID-19 Rule Out 11/03/2024 11/03/2024 11/03/2024 10:48 AM INSTRUMENT TECH COVID-19 Rule Out 11/24/2024 11/24/2024 11/24/2024 10:51 AM INSTRUMENT TECH Influenza - Seasonal 11/24/2024 11/24/2024 025 12:32 AM INSTRUMENT TECH Respiratory Rule Out 01/08/2025 01/08/2025 025 9:20 AM CDT Assessment Noted Time PHQ-9 Depression Total Score: 0 11/17/19 9:43 AM INSTRUMENT TECH documented as of this encounter Care Teams Rn Geriatric Relationship Specialty Start Date End Date Cesilia Casillas [facility] PCP - General Nurse Practitioner Family 11/17/21 Rosangela Joyner [facility] PCP - General Nurse Practitioner Family 07/22/23 5 None, Provider, PCP - General UNKNOWN PHYSICIAN SPECIALTY 05/29/25 Zaheer Degroot MD Consulting Physician GASTROENTEROLOGY 06/12/19 Rey Sigala MD OBGYN 06/12/19 documented as of this encounter
--- OUTSIDE RECORDS SUMMARY | 2025-07-18 12:44 | XMS_ITS | Clinical Summary ---
Author Organization [facility] Address [address] [place] [id number] Care Team Providers Care Yacht Captain Name Role Phone Roberto Johnson MD Primary [...] 5 Overview (07/12/2025): Telephone Number Lissett Byrd [phone] (home) Home Yes [phone] Spouse No [] PUL Card Given Working Diagnosis: PUL Date presented: 07/12/25 Brief HPI: 30 y.o. at approximately 6w4d (LMP=05/24/2025) presents with PUL. Had bHCG followed at OSH w/ normal rise but came to [facility] Ed w/ cramping/VB Ultrasound: TVUS: Empty uterus, no adnexal masses Rh Status: O Positive [] Rhogam Given Beta Trend: Had betas at [facility] in [place], [place] w/ appropriate rise: 07/01: 230 07/03: 725 07/09: bHCG 2843 ([facility] lab). US w/o YS/FP, no e/o ectopic. 07/12: Spoke to patient over the phone, she had fUS with primary OBGYN ([facility] in [place], [place]) with c/f ectopic, she got MTX, her primary OBGYN will be following her beta trend. She declines to return to [facility] and prefers to follow with her primary OBGYN. Discussed with attending, ok to discharge from our BB follow list. Lab Results Component Value Date HCG 2,843.0 (H) 07/09/2025 PLAN Next beta due: N/A, will follow with primary OBGYN in [place] Contraception: TBD [x] Signed out with attending and okay to remove from beta book. 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 Gender Identity Not on file Sexual Orientation Not on file Obstetrics History Para Term AB IAB SAB Ectopic Multiple Livin g Live Births 2 1 1 1 1 Date Outcome GA Total Labor Labor/2nd/3rd Weight Sex Type Anes PTL Lolis A1 A5 Name Clin Term Vaginal Living Current Summary Episode Dates Number of Fetuses Estimated Date of Delivery 07/09/2025 - Present (07/18/2025) 02/28/2026 (set by Bette Hinton MD on 07/09/2025 based on Last Menstrual Period on 05/24/2025) Dating Summary Based On SUSANA GA Diff Last Menstrual Period on 05/24/2025 02/28/2026 Working Vitals Pregravid Weight Height TWG (As of 07/18/2025) Pregrav id BMI 165.1 cm (5' 5) [...] - DEVICE Final Result [facility] [place] [address] * POCUS Female TVUS, (07/09/2025 4:21 PM [...] Straw Yellow Clarity, ur Clear Clear [facility] Specific gravity, ur 1.006 1.003 - 1.030 [facility] pH, urine 6.5 [facility] Comment: Interpretive Data U rine pH is affected by diet, medications, systemic acid-base disturbances, and renal tubular function. pH may affect urinary stone formation. For example, urine pH below 6.0 may help reduce the tendency for calcium phosphate stones and pH greater than 6.0 may reduce the tendency for uric acid stone formation. Source: [facility] [employer] Current Interpretive Data was last revised on 2017 Protein, ur ql Negative Negative [facility] Glucose, ur ql Negative Negative [facility] Ketones, ur Negative Negative [facility] Bilirubin, ur Negative Negative [facility] Blood, ur 2+(A) Negative [facility] Urobilinogen, ur <2.0 <2.0 mg/dL [facility] Nitrite, ur Negative Negative [facility] Leukocyte esterase, ur Negative Negative [facility] UA reflex comment Reflex to microscopic UA will be performed. [facility] Urine 07/09/2025 3:58 PM CDT 07/09/2025 4:05 PM CDT us Morgan Montero MD LAB MICROBIOLOGY - GENER AL ORDERABLES Final Result [facility] [place] [address] * (ABNORMAL) Urinalysis, microscopic only (07/09/2025 3:58 PM CDT) WBC, ur 0-5 0 - 5 /HPF RBC, ur 0-2 0 - 2 /HPF [facility] Epithelial cells, squamous, ur 1-5 0 - 5 /HPF [facility] Bacteria, ur Trace(A) [facility] Culture Reflex Comment Reflex conditions for urine culture (WBC >10) not met. [facility] Urine 07/09/2025 3:58 PM CDT 07/09/2025 4:05 PM CDT us Morgan Montero MD LAB URINE ORDERABLES Fin al Result Performing Organization Address [facility] Co de Phone Number [facility] [place] [address] * eGFR (07/09/2025 2:50 PM CDT) Pathologist [facility] eGFR >90 >=60 mL/min/1. 73 m2 Comment: [...] ORDERABLES F inal Result Performing Organization Address [facility] Co de Phone Number [facility] [place] [address] * Differential, auto (07/09/2025 2:50 PM CDT) Neutrophil abs 4.09 1.50 - 6.50 K/cumm Imm gran abs 0.03 0.00 - 0.10 K/cumm [facility] Lymphocyte abs 2.47 0.80 - 3.30 K/cumm [facility] Monocyte abs 0.51 0.20 - 0.80 K/cumm [facility] Eosinophil abs 0.05 0.00 - 0.50 K/cumm [facility] Basophil abs 0.04 0.00 - 0.10 K/cumm [facility] Neutrophil pct 56.8 % [facility] Comment: Interpretive Data Percent cell count reference ranges are not reported, since discordance with absolute values may lead to misinterpretation of CBC data. Current Interpretive Data was last revised on 2018. Imm gran pct 0.4 % [facility] Comment: Interpretive Data Percent cell count reference ranges are not reported, since discordance with absolute values may lead to misinterpretation of CBC data. Current Interpretive Data was last revised on 2018. Lymphocyte pct 34.4 % [facility] Comment: Interpretive Data Percent cell count reference ranges are not reported, since discordance with absolute values may lead to misinterpretation of CBC data. Current Interpretive Data was last revised on 2018. Monocyte pct 7.1 % [facility] Comment: Interpretive Data Percent cell count reference ranges are not reported, since discordance with absolute values may lead to misinterpretation of CBC data. Current Interpretive Data was last revised on 2018. Eosinophil pct 0.7 % [facility] Comment: Interpretive Data Percent cell count reference ranges are not reported, since discordance with absolute values may lead to misinterpretation of CBC data. Current Interpretive Data was last revised on 2018. Basophil pct 0.6 % [facility] Comment: Interpretive Data Percent cell count reference ranges are not reported, since discordance with absolute values may lead to misinterpretation of CBC data. Current Interpretive Data was last revised on 2018. Blood 07/09/2025 2:50 PM CDT 07/09/2025 3:51 PM CDT us Leah Santos MD LAB BLOOD ORDERABLES Monica l Result Performing Organization Address [facility] Co de Phone Number [facility] [place] [address] * (ABNORMAL) CBC with auto differential (07/09/2025 2:50 PM CDT) Pathologist [facility] WBC 7.19 3.80 - 9.90 K/cumm Hgb 10.1(L) 11.9 - 15.5 g/dL [facility] Hct 31.5(L) 35.6 - 45.5 % [facility] Plt 177 150 - 400 K/cumm [facility] MPV Not Measured 9.1 - 12.3 fL [facility] RBC 4.68 3.90 - 5.20 M/cumm [facility] MCV 67.3(L) 81.3 - 96.4 fL [facility] MCH 21.6(L) 27.1 - 33.3 pg [facility] MCHC 32.1(L) 32.3 - 35.7 g/dL [facility] RDW CV 16.4(H) 11.1 - 14.9 % [facility] RDW SD 38.7 35.7 - 48.1 fL [facility] NRBC abs 0.00 0.00 - 0.01 K/cumm [facility] Blood Venous blood specimen / Unknown 07/09/2025 2:50 PM CDT 07/09/2025 3:51 PM CDT Adrian Mccain MD LAB BLOOD ORDERABLES F inal Result Performing Organization Address [facility]/ZIP Co de Phone Number [facility] [place] [address] * ABO/Rh (07/09/2025 2:50 PM CDT) [facility] ABO Rh O Positive Blood 07/09/2025 2:50 PM CDT 07/09/2025 3:56 PM CDT Adrian Mccain MD LAB BLOOD BANK TEST OR DERABLES Final Result Performing Organization Address [facility] de Phone Number [facility] [employer] [place] [address] * (ABNORMAL) hCG, blood, quantitative (07/09/2025 2:50 [...] ORDERABLES F inal Result Performing Organization Address [facility] de Phone Number [facility] Department [place] [employer] [place] [address] * Comprehensive metabolic panel (07/09/2025 2:50 PM CDT) [facility] Sodium 137 135 - 145 mmol/L Potassium, pl 3.9 3.3 - 4.9 mmol/L [facility] Chloride 105 97 - 110 mmol/L [facility] CO2 25 22 - 32 mmol/L [facility] Anion gap 7 2 - 15 mmol/L [facility] BUN 12 6 - 25 mg/dL [facility] Creatinine 0.81 0.60 - 1.10 mg/dL [facility] Glucose 80 70 - 199 mg/dL [facility] Comment: Interpretive Data Fasting glucose >/= 126 [...] Calcium 9.4 8.5 - 10.3 mg/dL [facility] Bilirubin, total 0.8 0.1 - 1.2 mg/dL [facility] Protein, pl 7.2 6.5 - 8.5 g/dL [facility] Albumin 4.3 3.5 - 5.0 g/dL [facility] Alk phos 61 40 - 130 Units/L [facility] ALT 20 7 - 45 Units/L [facility] AST 24 10 - 45 Units/L [facility] Blood 07/09/2025 2:50 PM CDT 07/09/2025 3:51 PM CDT Adrian Mccain MD LAB BLOOD ORDERABLES F inal Result [facility] [place] [address] from Last 3 Months Insurance [facility] [employer] Address: [facility] [address] [place] [address] [facility] [employer] Address: [address] [place] [address] [facility] [employer] Address: [address] [place] [address] Care Teams Yacht Captain Relationship Specialty Start Date End Date Roberto Johnson MD PCP - General 04/25/20
== END 2025-07-18 10:49 | disposition home or self-care (01) ==
LOC: ANHLAB 10:49
PROVIDERS: Visit Provider Obstetrics & Gynecology
DX: O00.90 Unspecified ectopic pregnancy without intrauterine pregnancy (principal); Z3A.00 Weeks of gestation of pregnancy not specified
CPT/HCPCS: 36415; 84702

== ENCOUNTER 2025-07-24 15:29 | Outpatient (CLI) | payer OTHER, SELFPAY ==
[2025-07-24 16:36] LABS: Beta HCG Quantitative 1425.40 mIU/ML
--- OUTSIDE RECORDS SUMMARY | 2025-07-24 19:46 | XMS_ITS | Clinical Summary ---
Author Organization [facility] Address [address] [place] [phone] Care Team Providers Care Route Driver Salesperson Name Role Phone Roberto Johnson MD Primary [...] 5 Overview (07/12/2025): Telephone Number Lissett Byrd [phone] (home) Home Yes [phone] Spouse No [] PUL Card Given Working Diagnosis: PUL Date presented: 07/12/25 Brief HPI: 30 y.o. at approximately 6w4d (LMP=05/24/2025) presents with PUL. Had bHCG followed at OSH w/ normal rise but came to [facility] Ed w/ cramping/VB Ultrasound: TVUS: Empty uterus, no adnexal masses Rh Status: O Positive [] Rhogam Given Beta Trend: Had betas at [facility] in [place], [place] w/ appropriate rise: 07/01: 230 07/03: 725 07/09: bHCG 2843 ([facility] lab). US w/o YS/FP, no e/o ectopic. 07/12: Spoke to patient over the phone, she had fUS with primary OBGYN ([facility] in [place], [place]) with c/f ectopic, she got MTX, her primary OBGYN will be following her beta trend. She declines to return to [facility] and prefers to follow with her primary OBGYN. Discussed with attending, ok to discharge from our BB follow list. Lab Results Component Value Date HCG 2,843.0 (H) 07/09/2025 PLAN Next beta due: N/A, will follow with primary OBGYN in [place] Contraception: TBD [x] Signed out with attending and okay to remove from beta book. 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 Gender Identity Not on file Sexual Orientation Not on file Obstetrics History Para Term AB IAB SAB Ectopic Multiple Livin g Live Births 2 1 1 1 1 Date Outcome GA Total Labor Labor/2nd/3rd Weight Sex Type Anes PTL Lolis A1 A5 Name Clin Term Vaginal Living Current Summary Episode Dates Number of Fetuses Estimated Date of Delivery 07/09/2025 - Present (07/24/2025) 02/28/2026 (set by Bette Hinton MD on 07/09/2025 based on Last Menstrual Period on 05/24/2025) Dating Summary Based On SUSANA GA Diff Last Menstrual Period on 05/24/2025 02/28/2026 Working Vitals Pregravid Weight Height TWG (As of 07/24/2025) Pregrav id BMI 165.1 cm (5' 5) [...] - DEVICE Final Result [facility] Department [place] [address] * POCUS Female TVUS, (07/09/2025 4:21 PM [...] Straw Yellow Clarity, ur Clear Clear [facility] Specific gravity, ur 1.006 1.003 - 1.030 [facility] pH, urine 6.5 [facility] Comment: Interpretive Data U rine pH is affected by diet, medications, systemic acid-base disturbances, and renal tubular function. pH may affect urinary stone formation. For example, urine pH below 6.0 may help reduce the tendency for calcium phosphate stones and pH greater than 6.0 may reduce the tendency for uric acid stone formation. Source: [facility] [employer] Current Interpretive Data was last revised on 2017 Protein, ur ql Negative Negative [facility] Glucose, ur ql Negative Negative [facility] Ketones, ur Negative Negative [facility] Bilirubin, ur Negative Negative [facility] Blood, ur 2+(A) Negative [facility] Urobilinogen, ur <2.0 <2.0 mg/dL [facility] Nitrite, ur Negative Negative [facility] Leukocyte esterase, ur Negative Negative [facility] UA reflex comment Reflex to microscopic UA will be performed. [facility] Urine 07/09/2025 3:58 PM CDT 07/09/2025 4:05 PM CDT us Morgan Montero MD LAB MICROBIOLOGY - GENER AL ORDERABLES Final Result [facility] Department [place] [address] * (ABNORMAL) Urinalysis, microscopic only (07/09/2025 3:58 PM CDT) WBC, ur 0-5 0 - 5 /HPF RBC, ur 0-2 0 - 2 /HPF [facility] Epithelial cells, squamous, ur 1-5 0 - 5 /HPF [facility] Bacteria, ur Trace(A) [facility] Culture Reflex Comment Reflex conditions for urine culture (WBC >10) not met. [facility] Urine 07/09/2025 3:58 PM CDT 07/09/2025 4:05 PM CDT us Morgan Montero MD LAB URINE ORDERABLES Fin al Result Performing Organization Address [facility] Co de Phone Number [facility] Department [place] [address] * eGFR (07/09/2025 2:50 PM CDT) Pathologist [facility] eGFR >90 >=60 mL/min/1. 73 m2 Comment: [...] ORDERABLES F inal Result Performing Organization Address [facility] Co de Phone Number [facility] Department [place] [address] * Differential, auto (07/09/2025 2:50 PM CDT) Neutrophil abs 4.09 1.50 - 6.50 K/cumm Imm gran abs 0.03 0.00 - 0.10 K/cumm [facility] Lymphocyte abs 2.47 0.80 - 3.30 K/cumm [facility] Monocyte abs 0.51 0.20 - 0.80 K/cumm [facility] Eosinophil abs 0.05 0.00 - 0.50 K/cumm [facility] Basophil abs 0.04 0.00 - 0.10 K/cumm [facility] Neutrophil pct 56.8 % [facility] Comment: Interpretive Data Percent cell count reference ranges are not reported, since discordance with absolute values may lead to misinterpretation of CBC data. Current Interpretive Data was last revised on 2018. Imm gran pct 0.4 % [facility] Comment: Interpretive Data Percent cell count reference ranges are not reported, since discordance with absolute values may lead to misinterpretation of CBC data. Current Interpretive Data was last revised on 2018. Lymphocyte pct 34.4 % [facility] Comment: Interpretive Data Percent cell count reference ranges are not reported, since discordance with absolute values may lead to misinterpretation of CBC data. Current Interpretive Data was last revised on 2018. Monocyte pct 7.1 % [facility] Comment: Interpretive Data Percent cell count reference ranges are not reported, since discordance with absolute values may lead to misinterpretation of CBC data. Current Interpretive Data was last revised on 2018. Eosinophil pct 0.7 % [facility] Comment: Interpretive Data Percent cell count reference ranges are not reported, since discordance with absolute values may lead to misinterpretation of CBC data. Current Interpretive Data was last revised on 2018. Basophil pct 0.6 % [facility] Comment: Interpretive Data Percent cell count reference ranges are not reported, since discordance with absolute values may lead to misinterpretation of CBC data. Current Interpretive Data was last revised on 2018. Blood 07/09/2025 2:50 PM CDT 07/09/2025 3:51 PM CDT us Leah Santos MD LAB BLOOD ORDERABLES Monica l Result Performing Organization Address [facility] Co de Phone Number [facility] Department [place] [address] * (ABNORMAL) CBC with auto differential (07/09/2025 2:50 PM CDT) Pathologist [facility] WBC 7.19 3.80 - 9.90 K/cumm Hgb 10.1(L) 11.9 - 15.5 g/dL [facility] Hct 31.5(L) 35.6 - 45.5 % [facility] Plt 177 150 - 400 K/cumm [facility] MPV Not Measured 9.1 - 12.3 fL [facility] RBC 4.68 3.90 - 5.20 M/cumm [facility] MCV 67.3(L) 81.3 - 96.4 fL [facility] MCH 21.6(L) 27.1 - 33.3 pg [facility] MCHC 32.1(L) 32.3 - 35.7 g/dL [facility] RDW CV 16.4(H) 11.1 - 14.9 % [facility] RDW SD 38.7 35.7 - 48.1 fL [facility] NRBC abs 0.00 0.00 - 0.01 K/cumm [facility] Blood Venous blood specimen / Unknown 07/09/2025 2:50 PM CDT 07/09/2025 3:51 PM CDT Adrian Mccain MD LAB BLOOD ORDERABLES F inal Result Performing Organization Address [facility]/ZIP Co de Phone Number [facility] Department [place] [address] * ABO/Rh (07/09/2025 2:50 PM CDT) [facility] ABO Rh O Positive Blood 07/09/2025 2:50 PM CDT 07/09/2025 3:56 PM CDT Adrian Mccain MD LAB BLOOD BANK TEST OR DERABLES Final Result Performing Organization Address [facility] de Phone Number [facility] [place] [address] * (ABNORMAL) hCG, blood, quantitative (07/09/2025 2:50 [...] ORDERABLES F inal Result Performing Organization Address [facility] de Phone Number [facility] [place] [address] * Comprehensive metabolic panel (07/09/2025 2:50 PM CDT) [facility] Sodium 137 135 - 145 mmol/L Potassium, pl 3.9 3.3 - 4.9 mmol/L [facility] Chloride 105 97 - 110 mmol/L [facility] CO2 25 22 - 32 mmol/L [facility] Anion gap 7 2 - 15 mmol/L [facility] BUN 12 6 - 25 mg/dL [facility] Creatinine 0.81 0.60 - 1.10 mg/dL [facility] Glucose 80 70 - 199 mg/dL [facility] Comment: Interpretive Data Fasting glucose >/= [...] Calcium 9.4 8.5 - 10.3 mg/dL [facility] Bilirubin, total 0.8 0.1 - 1.2 mg/dL [facility] Protein, pl 7.2 6.5 - 8.5 g/dL [facility] Albumin 4.3 3.5 - 5.0 g/dL [facility] Alk phos 61 40 - 130 Units/L [facility] ALT 20 7 - 45 Units/L [facility] AST 24 10 - 45 Units/L [facility] Blood 07/09/2025 2:50 PM CDT 07/09/2025 3:51 PM CDT Adrian Mccain MD LAB BLOOD ORDERABLES F inal Result [facility] Department [place] [address] from Last 3 Months Insurance [facility] [employer] Address: [facility] [id number] [place] [address] [facility] [facility] Address: [address] [place] [address] [facility] [facility] [employer] Address: [address] [place] [address] Care Teams Route Driver Salesperson Relationship Specialty Start Date End Date Roberto Johnson MD PCP - General 04/25/20
--- OUTSIDE RECORDS SUMMARY | 2025-07-24 19:46 | XMS_ITS | Patient Health Record ---
Author Organization [facility] Address [address] [place] [address] Care Team Providers Care Low Altitude Air Defense Officer Name Role Phone Dr. Maya Valdez Primary Care Provider [phone] Allergies Allergen (clinical drug ingredient) Drug/Non Drug [...] Status Risk Notes Problem Generalized anxiety disorder (73102067) Anxiety, generalized (F41.1) Active confirmed Problem Gastroesophageal reflux disease (disorder) (034411663) Chronic GERD (K21.9) Active confirmed Vital Signs [...] 06/05/2025 Encounters Encounter Location Date Provider Diagnosis [facility] [address] [place] [address] 06/05/2025 Dr. Maya Valdez Anxiety, generalized F41.1 [...] Date Coverage End Date Karey Dam[id number] [facility] [address] [id number] Nivia Zimmer Self - patient is the insured Medical (General) History Surgical History Surgery Date(Month/Year) appendectomy rhinoplasty
--- OUTSIDE RECORDS SUMMARY | 2025-07-24 19:46 | XMS_ITS | Encounter Summary ---
Author Organization [facility] Address [address] [place] [address] Care Team Providers Care Barking Machine Feeder Name Role Phone Zaheer Degroot MD Unavailable [phone] Rey Sigala MD Unavailable [phone] Cesilia Casillas [facility] Primary Care Provider + Rosangela Joyenr [facility] Primary Care Provider + None, Provider Primary Care Provider Unavaila ble Encounter Details Date Type Department Care Team (Late st Contact Info) Description 12/10/2021 MyChart Message Enc [facility] Family & Internal Medicine [address] [address] Cesilia Casillas, [facility] [address] [place] [address] Sinus infection Social History Tobacco [...] Sex Assigned at Female 11/03/2024 10:35 AM WEB SITE MANAGER Legal Sex Female 8:25 PM CDT Gender Identity Not on file Sexual Orientation Not on file COVID-19 Exposure Response Date Recorded In the last 10 days, have yo u been in contact with someone who was confirmed or suspected to have Coronavirus/COVID-19? Unable to assess 12/11/2021 3:12 PM WEB SITE MANAGER documented as of this encounter Plan of Treatment Not on file documented as of this encounter Visit Diagnoses Not on filedocumented in this encounter Additional Health Concerns Infection Onset Date Last Indicated Resolved Time COVID-19 Rule Out 11/17/2023 11/17/2023 11/17/2023 11:10 AM WEB SITE MANAGER COVID-19 Confirmed 11/17/2023 11/17/2023 12:32 AM CDT COVID-19 Rule Out 06/07/2024 06/07/2024 06/07/2024 9:22 AM CDT COVID-19 Rule Out 11/03/2024 11/03/2024 11/03/2024 10:48 AM WEB SITE MANAGER COVID-19 Rule Out 11/24/2024 11/24/2024 11/24/2024 10:51 AM WEB SITE MANAGER Influenza - Seasonal 11/24/2024 11/24/2024 025 12:32 AM WEB SITE MANAGER Respiratory Rule Out 01/08/2025 01/08/2025 025 9:20 AM CDT Assessment Noted Time PHQ-9 Depression Total Score: 0 11/17/19 9:43 AM WEB SITE MANAGER documented as of this encounter Care Teams Barking Machine Feeder Relationship Specialty Start Date End Date Cesilia Casillas [facility] PCP - General Nurse Practitioner Family 11/17/21 Rosangela Joyner [facility] PCP - General Nurse Practitioner Family 07/22/23 5 None, Provider, PCP - General UNKNOWN PHYSICIAN SPECIALTY 05/29/25 Zaheer Degroot MD Consulting Physician GASTROENTEROLOGY 06/12/19 Rey Sigala MD OBGYN 06/12/19 documented as of this encounter
--- OUTSIDE RECORDS SUMMARY | 2025-07-24 19:46 | XMS_ITS | Clinical Summary ---
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 Encouraged her to do so at her earliest convenience. Continue current treatment. 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 Symptomatic treatment only at this time. Stable. Resolved Problems Problem Noted Date Diagnosed Date Resolved Date Wears glasses 12/27/2017 06/13/2020 Encounters Date Type Department Care Team Description 05/29/2025 10:10 AM CDT - 05/29/2025 11:59 PM CDT Hospital Encounter [facility] [address] [place] [address] Daisy Mueller MD Discharge Disposition: Home or Self Care (Routine Discharge) 05/29/2025 Orders Only [facility] [address] [place] [address] Daisy Mueller MD 05/29/2025 Travel 05/24/2025 10:26 AM CDT - 05/24/2025 11:59 PM CDT Hospital Encounter [facility] [address] [place] [address] Ana Kirk PA Discharge Disposition: Home or Self Care (Routine Discharge) 05/24/2025 9:20 AM CDT Office Visit [facility] Family & Internal [address] [phone] Ana Kirk PA Headache (Body aches, left side pain, hurts to take a deep breath X 1 week) 05/24/2025 Travel 05/22/2025 12:00 PM CDT Office Visit [address] [place] [address] Naren Lovelace MD Body Aches; Fever; Headache; Shortness Of Breath ; Chest Discomfort (Patient states she was seen on 05/14 for sore throat. Sore throat resolved. States symptoms listed started 6 days ago. ) 05/22/2025 Telephone [facility] & Internal [address] [address] Rosangela Joyner, [employer] ARCHITECT-BC Other (Cold S/S not resolved ) 05/22/2025 Travel 05/16/2025 Results Follow-Up [facility] [address] [facility] [address] [place] [id number] Bhavya Cabrera DO STREP A, DNA 05/14/2025 11:18 AM CDT - 05/14/2025 11:59 PM CDT Hospital Encounter [facility] [address] [address] Bhavya Cabrera DO Discharge Disposition: Home or Self Care (Routine Discharge) 05/14/2025 7:40 AM CDT Office Visit [facility] [address] [facility] [address] [place] [phone] Bhavya Cabrera DO Sore Throat (X 5 [...] Sex Assigned at Female 11/03/2024 10:35 AM MOLECULAR PATHOLOGIST Legal Sex Female 8:25 PM CDT Gender [...] Hepatitis B Vaccines Completed 02/26/1998, 1997, 1997 Hepatitis A Vaccines Completed 04/26/2009, 04/18/20 07 Meningococcal Vaccine Aged Out 04/26/2009 No pamdini savanna eligible based on patient's age to complete this topic PHQ-2 (Physician [place]) Completed 01/08/2025 Meningococcal B Vaccine Aged Out [...] CBC W/DIFF AUTOMATED (05/29/2025 10:13 AM CDT) WBC 8.76 4.4 - 11.0 x10'3/uL 05/29/2025 10:57 AM CDT [facility] RBC 5.07 4.50 - 5.10 x10'6/uL 05/29/2025 10:57 AM CDT [facility] HGB 10.6(L) 12.3 - 15.3 G/DL 05/29/2025 10:57 AM CDT [facility] HCT 34.6(L) 35.9 - 44.6 % 05/29/2025 10:57 AM CDT [facility] MCV 68.2(L) 80.0 - 96.0 FL 05/29/2025 10:57 AM CDT [facility] MCH 20.9(L) 25.3 - 30.9 PG 05/29/2025 10:57 AM CDT [facility] MCHC 30.6(L) 31.0 - 34.1 G/DL 05/29/2025 10:57 AM CDT [facility] RDW 15.8(H) 12.4 - 15.1 % 05/29/2025 10:57 AM CDT [facility] PLT 186 151 - 353 x10'3/uL 05/29/2025 10:57 AM CDT [facility] SEG NEUTROPHILS 41(L) 42 - 72 % 11:21 AM CDT [facility] LYMPHOCYTES 39 15.8 - 45.0 % 05/29/2025 11:21 AM CDT [facility] ATYP. LYMPHS 13 % 05/29/2025 11:21 AM CDT [facility] MONOCYTES % 7.0 % 05/29/2025 11:21 AM CDT [facility] ABS. NEUTROPHILS 3.59 1.40 - 6.00 x10'3/uL 05/29/2025 11:21 AM CDT [facility] ABS. LYMPHOCYTES 4.56 0.80 - 4.70 x10'3/uL 05/29/2025 11:21 AM CDT [facility] PLT MORPH. NORMAL 05/29/2025 11:21 AM CDT [facility] RBC MORPHOLOGY SLIGHT 05/29/2025 11:21 AM CDT [facility] Comment:MICROCYTES WBC MORPHOLOGY NORMAL 05/29/2025 11:21 AM CDT [facility] 05/29/2025 10:1 3 AM CDT Daisy Mueller MD LABORATORY Edited Result - Final [facility] [address] [place] [address], * XR CHEST PA+LAT (05/24/2025 10:37 AM CDT) Anatomical Region Laterality Modality Chest Radiographic Keily ging 05/24/2025 10:3 7 AM CDT Impressions 05/24/2025 10:38 AM CDT IMPRESSION: 1) No radiographic evidence of active disease the chest. and Ordered By: ANA KIRK Interpreted By: Dilshad Cade MD, 05/24/2025 10:37 AM Narrative 05/24/2025 10:38 AM CDT [facility] [address] [place] [address] Examination: XR CHEST PA+LAT Exam time: 05/24/2025 10:34 AM Clinical history: Pain on inspiration Comparison: 05/19/2016 Technique: PA and lateral Findings: Heart size within normal limits. Pulmonary vasculature unremarkable. No significant focal pulmonary parenchymal opacity. No pleural effusion. No hyperinflation. Procedure Note Dilshad Cade MD - 05/24/2025 [place] [address] [place] [address] Examination: XR CHEST PA+LAT Exam time: 05/24/2025 [...] CDT) SPECIMEN SOURCE THROAT 11:18 AM CDT [facility] STREP A MOLECULAR NEGATIVE NEGATIVE 025 11:18 PM CDT [facility] Comment:SPECIMEN NEGATIVE FO R GROUP A STREPTOCOCCUS BY DNA AMPLIFICATION STRUCTURE OF ANTERIOR REGION OF NECK / Unknown 05/14/2025 7:44 AM CDT Bhavya Cabrera DO MICROBIOLOGY - GENERAL ORDERABLE S Final Result [facility] [address] [place] [address], [place] [phone] [facility] [address] [place] [address], [place] * STREP A RAPID (05/14/2025) Pathologist [facility] RAPID STREP TEST NEGATIVE NEGATIVE [facility] (201), [place] Internal Control: VALID VALID [facility] (201), [place] STRUCTURE OF ANTERIOR REGION OF NECK / Unknown 05/14/2025 Bhavya Elmer Cabrera DO MICROBIOLOGY - GENERAL ORDERABLE S Final Result Performing Organization Address City/[facility]/ZIP Co de Phone Number -[facility] (201), [place] [address] [facility] [place] [address], [place] [phone] from Last 3 Months Insurance [employer] Care Teams Fuel Oil Clerk Relationship Specialty Start Date End Date None, Provider, PCP - General UNKNOWN PHYSICIAN SPECIALTY 05/29/25 Zaheer Degroot MD Consulting Physician GASTROENTEROLOGY 06/12/19 Rey Sigala MD OBGYN 06/12/19
--- OUTSIDE RECORDS SUMMARY | 2025-07-24 19:46 | XMS_ITS | Encounter Summary ---
Author Organization [facility] Address [address] [place] [address] Care Team Providers Care Cooking Teacher Name Role Phone Zaheer Degroot MD Unavailable [phone] Rey Sigala MD Unavailable [phone] Cesilia Casillas [facility] Primary Care Provider + Rosangela Joyner [facility] Primary Care Provider + None, Provider Primary Care Provider Unavaila ble Encounter Details Date Type Department Care Team (Late st Contact Info) Description 11/17/2021 MyChart Message Enc [facility] Family & Internal Medicine [address] [address] Cesilia Casillas, [place] [address] [place] [address] Lab results Social History Tobacco [...] Sex Assigned at Female 11/03/2024 10:35 AM WELT TRIMMING MACHINE OPERATOR Legal Sex Female 8:25 PM CDT Gender Identity Not on file Sexual Orientation Not on file COVID-19 Exposure Response Date Recorded In the last 10 days, have yo u been in contact with someone who was confirmed or suspected to have Coronavirus/COVID-19? No / Unsure 11/17/2021 9:33 AM WELT TRIMMING MACHINE OPERATOR documented as of this encounter Progress Notes * Shazia Little RN - 11/18/2021 4:33 PM CST Called and spoke with DJ at [facility] lab, she states she can add these. Orders have been placed. TRIMMING MACHINE OPERATOR * CHAR Lopez - 11/18/2021 4:20 PM CST Is it possible to add ferritin and iron panel to her labs? TRIMMING MACHINE OPERATOR documented in this encounter Plan of Treatment Not on file documented as of this encounter Results * (ABNORMAL) IRON SAT PANEL (IRON,IBC,%SAT) (11/17/2021 10:10 AM WELT TRIMMING MACHINE OPERATOR) [facility] IRON 128 50 - 170 MCG/DL 11/18/2021 5:25 PM WELT TRIMMING MACHINE OPERATOR [facility] IRON BINDING CAPACITY 231(L) 250 - 450 MCG/DL 11/18/2021 5:25 PM WELT TRIMMING MACHINE OPERATOR [facility] IRON SATURATION 55 20 - 55 % 5:25 PM WELT TRIMMING MACHINE OPERATOR [facility] 11/17/2021 10:1 0 AM WELT TRIMMING MACHINE OPERATOR Cesilia [facility]ARDO [facility] Final Re sult [facility] [address] [place] [address], [place] [phone] * FERRITIN (11/17/2021 10:10 AM WELT TRIMMING MACHINE OPERATOR) FERRITIN 99.0 8.0 - 388.0 NG/ML 11/18/2021 5:40 PM WELT TRIMMING MACHINE OPERATOR [facility] 11/17/2021 10:1 0 AM WELT TRIMMING MACHINE OPERATOR Cesilia Casillas [facility] Final Re sult [facility] [address] [place] [address], documented in this encounter Visit Diagnoses Diagnosis Thalassemia minor- Primary Anemia, unspecified documented in this encounter Additional Health Concerns Infection Onset Date Last Indicated Resolved Time COVID-19 Rule Out 11/17/2023 11/17/2023 11/17/2023 11:10 AM WELT TRIMMING MACHINE OPERATOR COVID-19 Confirmed 11/17/2023 11/17/2023 12:32 AM CDT COVID-19 Rule Out 06/07/2024 06/07/2024 06/07/2024 9:22 AM CDT COVID-19 Rule Out 11/03/2024 11/03/2024 11/03/2024 10:48 AM WELT TRIMMING MACHINE OPERATOR COVID-19 Rule Out 11/24/2024 11/24/2024 11/24/2024 10:51 AM WELT TRIMMING MACHINE OPERATOR Influenza - Seasonal 11/24/2024 11/24/2024 025 12:32 AM WELT TRIMMING MACHINE OPERATOR Respiratory Rule Out 01/08/2025 01/08/2025 025 9:20 AM CDT Assessment Noted Time PHQ-9 Depression Total Score: 0 11/17/19 9:43 AM WELT TRIMMING MACHINE OPERATOR documented as of this encounter Care Teams Cooking Teacher Relationship Specialty Start Date End Date Cesilia Casillas [facility] PCP - General Nurse Practitioner Family 11/17/21 Rosangela Joyner [facility]- PCP - General Nurse Practitioner Family 07/22/23 5 None, Provider, PCP - General UNKNOWN PHYSICIAN SPECIALTY 05/29/25 Zaheer Degroot MD Consulting Physician GASTROENTEROLOGY 06/12/19 Rey Sigala MD OBGYN 06/12/19 documented as of this encounter
== END 2025-07-24 15:30 | disposition home or self-care (01) ==
PROVIDERS: Visit Provider Obstetrics & Gynecology
DX: O00.90 Unspecified ectopic pregnancy without intrauterine pregnancy (principal)
CPT/HCPCS: 36415; 84702

== ENCOUNTER 2025-08-07 14:03 | Outpatient (CLI) | payer OTHER, SELFPAY ==
[2025-08-07 15:52] LABS: Beta HCG Quantitative 4.26 mIU/ML
--- OUTSIDE RECORDS SUMMARY | 2025-08-08 13:42 | XMS_ITS | Encounter Summary ---
Author Organization [facility] Address [address] [place] [address] Care Team Providers Care Geologist Name Role Phone Zaheer Degroot MD Unavailable [phone] Rey Sigala MD Unavailable [phone] Cesilia Casillas [facility] Primary Care Provider + Rosangela Joyner [facility] Primary Care Provider + None, Provider Primary Care Provider Unavaila ble Encounter Details Date Type Department Care Team (Late st Contact Info) Description 12/10/[address] [facility] Family & Internal Medicine [address] [address] Cesilia Casillas, [facility] [address] [place] [address] Sinus infection Social History Tobacco [...] Sex Assigned at Female 11/03/2024 10:35 AM CALL CENTER RN Legal Sex Female 8:25 PM CDT Gender Identity Not on file Sexual Orientation Not on file COVID-19 Exposure Response Date Recorded In the last 10 days, have yo u been in contact with someone who was confirmed or suspected to have Coronavirus/COVID-19? Unable to assess 12/11/2021 3:12 PM CALL CENTER RN documented as of this encounter Plan of Treatment Not on file documented as of this encounter Visit Diagnoses Not on filedocumented in this encounter Additional Health Concerns Infection Onset Date Last Indicated Resolved Time COVID-19 Rule Out 11/17/2023 11/17/2023 11/17/2023 11:10 AM CALL CENTER RN COVID-19 Confirmed 11/17/2023 11/17/2023 12:32 AM CDT COVID-19 Rule Out 06/07/2024 06/07/2024 06/07/2024 9:22 AM CDT COVID-19 Rule Out 11/03/2024 11/03/2024 11/03/2024 10:48 AM CALL CENTER RN COVID-19 Rule Out 11/24/2024 11/24/2024 11/24/2024 10:51 AM CALL CENTER RN Influenza - Seasonal 11/24/2024 11/24/2024 025 12:32 AM CALL CENTER RN Respiratory Rule Out 01/08/2025 01/08/2025 025 9:20 AM CDT Assessment Noted Time PHQ-9 Depression Total Score: 0 11/17/19 9:43 AM CALL CENTER RN documented as of this encounter Care Teams Geologist Relationship Specialty Start Date End Date Cesilia Casillas [facility] PCP - General Nurse Practitioner Family 11/17/21 Rosangela Joyner [facility] PCP - General Nurse Practitioner Family 07/22/23 5 None, Provider, PCP - General UNKNOWN PHYSICIAN SPECIALTY 05/29/25 Zaheer Degroot MD Consulting Physician GASTROENTEROLOGY 06/12/19 Rey Sigala MD OBGYN 06/12/19 documented as of this encounter
--- OUTSIDE RECORDS SUMMARY | 2025-08-08 13:42 | XMS_ITS | Clinical Summary ---
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 Encouraged her to do so at her earliest convenience. Continue current treatment. 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 Symptomatic treatment only at this time. Stable. Resolved Problems Problem Noted Date Diagnosed Date Resolved Date Wears glasses 12/27/2017 06/13/2020 Encounters Date Type Department Care Team Description 05/29/2025 10:10 AM CDT - 05/29/2025 11:59 PM CDT Hospital Encounter [facility] [address] [place] [address] Daisy Mueller MD Discharge Disposition: Home or Self Care (Routine Discharge) 05/29/2025 Orders Only [facility] [address] [place] [address] Daisy Mueller MD 05/29/2025 Travel 05/24/2025 10:26 AM CDT - 05/24/2025 11:59 PM CDT Hospital Encounter [facility] [address] [place] [address] Ana Kirk PA Discharge Disposition: Home or Self Care (Routine Discharge) 05/24/2025 9:20 AM CDT Office Visit [facility] Family & Internal [address] [phone] Ana Kirk PA Headache (Body aches, left side pain, hurts to take a deep breath X 1 week) 05/24/2025 Travel 05/22/2025 12:00 PM CDT Office Visit [address] [place] [address] Naren Lovelace MD Body Aches; Fever; Headache; Shortness Of Breath ; Chest Discomfort (Patient states she was seen on 05/14 for sore throat. Sore throat resolved. States symptoms listed started 6 days ago. ) 05/22/2025 Telephone [facility] & Internal [address] [address] Rosangela Joyner, CASING FINISHER AND STUFFER-BC Other (Cold S/S not resolved ) 05/22/2025 Travel 05/16/2025 Results Follow-Up [facility] [address] [facility] [address] [place] [id number] Bhavya Cabrera DO STREP A, DNA 05/14/2025 11:18 AM CDT - 05/14/2025 11:59 PM CDT Hospital Encounter [facility] [address] [address] Bhavya Caberra DO Discharge Disposition: Home or Self Care (Routine Discharge) 05/14/2025 7:40 AM CDT Office Visit [facility] [address] [facility] [address] [place], [place] [id number] Bhavya Cabrera DO Sore Throat (X 5 [...] Sex Assigned at Female 11/03/2024 10:35 AM GAME MODERATOR Legal Sex Female 8:25 PM CDT Gender [...] 07 Meningococcal Vaccine Aged Out 04/26/2009 No padmini savanna eligible based on patient's age to complete this topic PHQ-2 (Physician [place]) Completed 01/08/2025 Meningococcal B Vaccine Aged Out [...] 11.0 x10'3/uL 05/29/2025 10:[address] [facility] RBC 5.07 4.50 - 5.10 x10'6/uL 05/29/2025 10:[address] [facility] HGB 10.6(L) 12.3 - 15.3 G/DL 05/29/2025 10:[address] [facility] HCT 34.6(L) 35.9 - 44.6 % 05/29/2025 10:[address] [facility] MCV 68.2(L) 80.0 - 96.0 FL 05/29/2025 10:[address] [facility] MCH 20.9(L) 25.3 - 30.9 PG 05/29/2025 10:[address] [facility] MCHC 30.6(L) 31.0 - 34.1 G/DL 05/29/2025 10:[address] [facility] RDW 15.8(H) 12.4 - 15.1 % 05/29/2025 10:[address] [facility] PLT 186 151 - 353 x10'3/uL 05/29/2025 10:[address] [facility] SEG NEUTROPHILS 41(L) 42 - 72 % 11:[address] [facility] LYMPHOCYTES 39 15.8 - 45.0 % 05/29/2025 11:[address] [facility] ATYP. LYMPHS 13 % 05/29/2025 11:[address] [facility] MONOCYTES % 7.0 % 05/29/2025 11:[address] [facility] ABS. NEUTROPHILS 3.59 1.40 - 6.00 x10'3/uL 05/29/2025 11:[address] [facility] ABS. LYMPHOCYTES 4.56 0.80 - 4.70 x10'3/uL 05/29/2025 11:[address] [facility] PLT MORPH. NORMAL 05/29/2025 11:[address] [facility] RBC MORPHOLOGY SLIGHT 05/29/2025 11:[address] [facility] Comment:MICROCYTES WBC MORPHOLOGY NORMAL 05/29/2025 11:[address] [facility] 05/29/2025 10:1 3 AM CDT Daisy Mueller MD LABORATORY Edited Result - Final [facility] [address] [place] [address], * XR CHEST PA+LAT (05/24/2025 10:37 AM CDT) Anatomical Region Laterality Modality Chest Radiographic Keily ging 05/24/2025 10:3 7 AM CDT Impressions 05/24/2025 10:38 AM CDT IMPRESSION: 1) No radiographic evidence of active disease the chest. and Ordered By: ANA KIRK Interpreted By: Dilshad Cade MD, 05/24/2025 10:37 AM Narrative 05/24/2025 10:38 AM CDT [facility] [address] [place] [address] Examination: XR CHEST PA+LAT Exam time: 05/24/2025 10:34 AM Clinical history: Pain on inspiration Comparison: 05/19/2016 Technique: PA and lateral Findings: Heart size within normal limits. Pulmonary vasculature unremarkable. No significant focal pulmonary parenchymal opacity. No pleural effusion. No hyperinflation. Procedure Note Dilshad Cade MD - 05/24/2025 [place] [address] [place] [address] Examination: XR CHEST PA+LAT Exam time: 05/24/2025 [...] CDT) SPECIMEN SOURCE THROAT 11:18 AM CDT [facility] STREP A MOLECULAR NEGATIVE NEGATIVE 025 11:18 PM CDT [facility] Comment:SPECIMEN NEGATIVE FO R GROUP A STREPTOCOCCUS BY DNA AMPLIFICATION STRUCTURE OF ANTERIOR REGION OF NECK / Unknown 05/14/2025 7:44 AM CDT Bhavya Cabrera DO MICROBIOLOGY - GENERAL ORDERABLE S Final Result [facility] [address] [place] [address], [place] [phone] [facility] [address] [place] [address], [place] * STREP A RAPID (05/14/2025) Pathologist [facility] RAPID STREP TEST NEGATIVE NEGATIVE [facility] (201), [place] Internal Control: VALID VALID [facility] (201), [place] STRUCTURE OF ANTERIOR REGION OF NECK / Unknown 05/14/2025 Bhavya Elmer Cabrera DO MICROBIOLOGY - GENERAL ORDERABLE S Final Result Performing Organization Address City/[facility]/ZIP Co de Phone Number -[facility] (201), [place] [address] [facility] [place] [address], [place] [phone] from Last 3 Months Insurance [employer] Care Teams Roll Cutting Operator Relationship Specialty Start Date End Date None, Provider, PCP - General UNKNOWN PHYSICIAN SPECIALTY 05/29/25 Zaheer Degroot MD Consulting Physician GASTROENTEROLOGY 06/12/19 Rey Sigala MD OBGYN 06/12/19
--- OUTSIDE RECORDS SUMMARY | 2025-08-08 13:42 | XMS_ITS | Encounter Summary ---
Author Organization [facility] Address [address] [place] [address] Care Team Providers Care Medical Doctor Nuclear Medicine Name Role Phone Zaheer Degroot MD Unavailable [phone] Rey Sigala MD Unavailable [phone] Cesilia Casillas [facility] Primary Care Provider + Rosangela Joyner [facility] Primary Care Provider + None, Provider Primary Care Provider Unavaila ble Encounter Details Date Type Department Care Team (Late st Contact Info) Description 11/17/2021 MyChart Message Enc [facility] Medical Group Family & Internal Medicine [address] [address] Cesilia Casillas, [place] [id number] [place] [address] Lab results Social History Tobacco [...] Sex Assigned at Female 11/03/2024 10:35 AM WEED COOKING OPERATOR Legal Sex Female 8:25 PM CDT Gender Identity Not on file Sexual Orientation Not on file COVID-19 Exposure Response Date Recorded In the last 10 days, have yo u been in contact with someone who was confirmed or suspected to have Coronavirus/COVID-19? No / Unsure 11/17/2021 9:33 AM WEED COOKING OPERATOR documented as of this encounter Progress Notes * Shazia Little RN - 11/18/2021 4:33 PM CST Called and spoke with DJ at [facility] lab, she states she can add these. Orders have been placed. COOKING OPERATOR * CHAR Lopez - 11/18/2021 4:20 PM CST Is it possible to add ferritin and iron panel to her labs? COOKING OPERATOR documented in this encounter Plan of Treatment Not on file documented as of this encounter Results * (ABNORMAL) IRON SAT PANEL (IRON,IBC,%SAT) (11/17/2021 10:10 AM WEED COOKING OPERATOR) [facility] IRON 128 50 - 170 MCG/DL 11/18/2021 5:25 PM WEED COOKING OPERATOR [facility] IRON BINDING CAPACITY 231(L) 250 - 450 MCG/DL 11/18/2021 5:25 PM WEED COOKING OPERATOR [facility] IRON SATURATION 55 20 - 55 % 5:25 PM WEED COOKING OPERATOR [facility] 11/17/2021 10:1 0 AM WEED COOKING OPERATOR Cesilia [facility] Final Re sult [facility] [address] [place] [address], [place] [phone] * FERRITIN (11/17/2021 10:10 AM WEED COOKING OPERATOR) FERRITIN 99.0 8.0 - 388.0 NG/ML 11/18/2021 5:40 PM WEED COOKING OPERATOR [facility] 11/17/2021 10:1 0 AM WEED COOKING OPERATOR Cesilia Casillas [facility] Final Re sult [facility] [address] [place] [address], documented in this encounter Visit Diagnoses Diagnosis Thalassemia minor- Primary Anemia, unspecified documented in this encounter Additional Health Concerns Infection Onset Date Last Indicated Resolved Time COVID-19 Rule Out 11/17/2023 11/17/2023 11/17/2023 11:10 AM WEED COOKING OPERATOR COVID-19 Confirmed 11/17/2023 11/17/2023 12:32 AM CDT COVID-19 Rule Out 06/07/2024 06/07/2024 06/07/2024 9:22 AM CDT COVID-19 Rule Out 11/03/2024 11/03/2024 11/03/2024 10:48 AM WEED COOKING OPERATOR COVID-19 Rule Out 11/24/2024 11/24/2024 11/24/2024 10:51 AM WEED COOKING OPERATOR Influenza - Seasonal 11/24/2024 11/24/2024 025 12:32 AM WEED COOKING OPERATOR Respiratory Rule Out 01/08/2025 01/08/2025 025 9:20 AM CDT Assessment Noted Time PHQ-9 Depression Total Score: 0 11/17/19 9:43 AM WEED COOKING OPERATOR documented as of this encounter Care Teams Medical Doctor Nuclear Medicine Relationship Specialty Start Date End Date Cesilia Casillas [facility] PCP - General Nurse Practitioner Family 11/17/21 Rosangela Joyner [facility]- PCP - General Nurse Practitioner Family 07/22/23 5 None, Provider, PCP - General UNKNOWN PHYSICIAN SPECIALTY 05/29/25 Zaheer Degroot MD Consulting Physician GASTROENTEROLOGY 06/12/19 Rey Sigala MD OBGYN 06/12/19 documented as of this encounter
--- OUTSIDE RECORDS SUMMARY | 2025-08-08 13:42 | XMS_ITS | Clinical Summary ---
Author Organization [facility] Address [address] [place] [address] Care Team Providers Care Sanitation Worker Name Role Phone Roberto Johnson MD Primary [...] 5 Overview (07/12/2025): Telephone Number Lissett Byrd [phone] (home) Home Yes [phone] Spouse No [] PUL Card Given Working Diagnosis: PUL Date presented: 07/12/25 Brief HPI: 30 y.o. at approximately 6w4d (LMP=05/24/2025) presents with PUL. Had bHCG followed at OSH w/ normal rise but came to [facility] Ed w/ cramping/VB Ultrasound: TVUS: Empty uterus, no adnexal masses Rh Status: O Positive [] Rhogam Given Beta Trend: Had betas at [facility] in [place], [place] w/ appropriate rise: 07/01: 230 07/03: 725 07/09: bHCG 2843 ([facility] lab). US w/o YS/FP, no e/o ectopic. 07/12: Spoke to patient over the phone, she had fUS with primary [facility] [place] [place]) with c/f ectopic, she got MTX, her primary OBGYN will be following her beta trend. She declines to return to [facility] and prefers to follow with her primary OBGYN. Discussed with attending, ok to discharge from our BB follow list. Lab Results Component Value Date HCG 2,843.0 (H) 07/09/2025 PLAN Next beta due: N/A, will follow with primary OBGYN in [place] Contraception: TBD [x] Signed out with attending and okay to remove from beta book. Attending Name: Amy Carlisle Gastroesophageal reflux disease 04/24/2021 Syncope 03/21/2014 Estimated Date of Delivery Comme nts Yes 02/28/2026 Based on last me nstrual period of 05/24/2025 Encounters Date Type Department Care Team Description 07/12/2025 Telephone [facility] [address] [place] [address] Anu Riley MD 07/09/2025 3:03 PM CDT - 07/09/2025 7:[address] 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 Gender Identity Not on file Sexual Orientation Not on file Obstetrics History Para Term AB IAB SAB Ectopic Multiple Livin g Live Births 2 1 1 1 1 Date Outcome GA Total Labor Labor/2nd/3rd Weight Sex Type Anes PTL Lolis A1 A5 Name Clin Term Vaginal Living Current Summary Episode Dates Number of Fetuses Estimated Date of Delivery 07/09/2025 - Present (08/08/2025) 02/28/2026 (set by Bette Hinton MD on 07/09/2025 based on Last Menstrual Period on 05/24/2025) Dating Summary Based On SUSANA GA Diff Last Menstrual Period on 05/24/2025 02/28/2026 Working Vitals Pregravid Weight Height TWG (As of 08/08/2025) Pregrav id BMI 165.1 cm (5' 5) [...] Depression Screening 1997 Hepatitis C Screening 1997 Regular Well Visit/Exam 18-64 2015 Pneumococcal vaccine [...] * POCT glucose (07/09/2025 5:32 PM CDT) [facility] Signature Glucose, POC 88 70 - 199 mg/dL Blood 07/09/2025 5:32 PM CDT 07/09/2025 5:32 PM CDT us Adrian Mccain MD LAB POCT ORDERABLES - DEVICE Final Result [facility] Department [place] [address] * POCUS Female TVUS, (07/09/2025 4:21 PM [...] ur Straw Yellow Clarity, ur Clear Clear [facility] Specific gravity, ur 1.006 1.003 - 1.030 [facility] pH, urine 6.5 [facility] Comment: Interpretive Data U rine pH is affected by diet, medications, systemic acid-base disturbances, and renal tubular function. pH may affect urinary stone formation. For example, urine pH below 6.0 may help reduce the tendency for calcium phosphate stones and pH greater than 6.0 may reduce the tendency for uric acid stone formation. Source: [facility] [employer] Current Interpretive Data was last revised on 2017 Protein, ur ql Negative Negative [facility] Glucose, ur ql Negative Negative [facility] Ketones, ur Negative Negative [facility] Bilirubin, ur Negative Negative [facility] Blood, ur 2+(A) Negative [facility] Urobilinogen, ur <2.0 <2.0 mg/dL [facility] Nitrite, ur Negative Negative [facility] Leukocyte esterase, ur Negative Negative [facility] UA reflex comment Reflex to microscopic UA will be performed. [facility] Urine 07/09/2025 3:58 PM CDT 07/09/2025 4:05 PM CDT us Morgan Montero MD LAB MICROBIOLOGY - GENER AL ORDERABLES Final Result [facility] Department [place] [address] * (ABNORMAL) Urinalysis, microscopic only (07/09/2025 3:58 PM CDT) WBC, ur 0-5 0 - 5 /HPF RBC, ur 0-2 0 - 2 /HPF [facility] Epithelial cells, squamous, ur 1-5 0 - 5 /HPF [facility] Bacteria, ur Trace(A) [facility] Culture Reflex Comment Reflex conditions for urine culture (WBC >10) not met. [facility] Urine 07/09/2025 3:58 PM CDT 07/09/2025 4:05 PM CDT Morgan Montero MD LAB URINE ORDERABLES Fin al Result Performing Organization Address [facility] Co de Phone Number [facility] Department [place] [address] * eGFR (07/09/2025 2:50 PM CDT) eGFR >90 >=60 mL/min/1. 73 m2 Comment: [...] of Race in Diagnosing Kidney Disease, JASN 2020). The CKD-EPI equation should not be used for patients with unstable renal function and has not been validated in children and those over 70. Current interpretive data was last reviewed 2021. Blood 07/09/2025 2:50 PM CDT 07/09/2025 3:51 PM CDT us Adrian Mccain MD LAB BLOOD ORDERABLES F inal Result Performing Organization Address City/[facility]/ZIP Co de Phone Number [facility] Department [place] [address] * Differential, auto (07/09/2025 2:50 PM CDT) Neutrophil abs 4.09 1.50 - 6.50 K/cumm Imm gran abs 0.03 0.00 - 0.10 K/cumm [facility] Lymphocyte abs 2.47 0.80 - 3.30 K/cumm [facility] Monocyte abs 0.51 0.20 - 0.80 K/cumm [facility] Eosinophil abs 0.05 0.00 - 0.50 K/cumm [facility] Basophil abs 0.04 0.00 - 0.10 K/cumm [facility] Neutrophil pct 56.8 % [facility] Comment: Interpretive Data Percent cell count reference ranges are not reported, since discordance with absolute values may lead to misinterpretation of CBC data. Current Interpretive Data was last revised on 2018. Imm gran pct 0.4 % [facility] Comment: Interpretive Data Percent cell count reference ranges are not reported, since discordance with absolute values may lead to misinterpretation of CBC data. Current Interpretive Data was last revised on 2018. Lymphocyte pct 34.4 % [facility] Comment: Interpretive Data Percent cell count reference ranges are not reported, since discordance with absolute values may lead to misinterpretation of CBC data. Current Interpretive Data was last revised on 2018. Monocyte pct 7.1 % [facility] Comment: Interpretive Data Percent cell count reference ranges are not reported, since discordance with absolute values may lead to misinterpretation of CBC data. Current Interpretive Data was last revised on 2018. Eosinophil pct 0.7 % [facility] Comment: Interpretive Data Percent cell count reference ranges are not reported, since discordance with absolute values may lead to misinterpretation of CBC data. Current Interpretive Data was last revised on 2018. Basophil pct 0.6 % [facility] Comment: Interpretive Data Percent cell count reference ranges are not reported, since discordance with absolute values may lead to misinterpretation of CBC data. Current Interpretive Data was last revised on 2018. Blood 07/09/2025 2:50 PM CDT 07/09/2025 3:51 PM CDT us Leah Santos MD LAB BLOOD ORDERABLES Monica corbett Result [facility] Department [place] [address] * (ABNORMAL) CBC with auto differential (07/09/2025 2:50 PM CDT) [facility] WBC 7.19 3.80 - 9.90 K/cumm Hgb 10.1(L) 11.9 - 15.5 g/dL [facility] Hct 31.5(L) 35.6 - 45.5 % [facility] Plt 177 150 - 400 K/cumm [facility] MPV Not Measured 9.1 - 12.3 fL [facility] RBC 4.68 3.90 - 5.20 M/cumm [facility] MCV 67.3(L) 81.3 - 96.4 fL [facility] MCH 21.6(L) 27.1 - 33.3 pg [facility] MCHC 32.1(L) 32.3 - 35.7 g/dL [facility] RDW CV 16.4(H) 11.1 - 14.9 % [facility] RDW SD 38.7 35.7 - 48.1 fL [facility] NRBC abs 0.00 0.00 - 0.01 K/cumm [facility] Blood Venous blood specimen / Unknown 07/09/2025 2:50 PM CDT 07/09/2025 3:51 PM CDT Adrian Mccain MD LAB BLOOD ORDERABLES F inal Result [facility] Department [place] [address] * ABO/Rh (07/09/2025 2:50 PM CDT) [facility] ABO Rh O Positive Blood 07/09/2025 2:50 PM CDT 07/09/2025 3:56 PM CDT Adrian Mccain MD LAB BLOOD BANK TEST OR DERABLES Final Result Performing Organization Address [facility]/State/ZIP Co de Phone Number [facility] Department [place] [address] * (ABNORMAL) hCG, blood, quantitative (07/09/2025 2:50 PM CDT) Pathologist [facility] hCG, quant 2,843.0(H ) 0.0 - 5.0 [...] ORDERABLES F inal Result Performing Organization Address City/State/[facility] Co de Phone Number [facility] Department [place] [address] * Comprehensive metabolic panel (07/09/2025 2:50 PM CDT) [facility] Sodium 137 135 - 145 mmol/L Potassium, pl 3.9 3.3 - 4.9 mmol/L [facility] Chloride 105 97 - 110 mmol/L [facility] CO2 25 22 - 32 mmol/L [facility] Anion gap 7 2 - 15 mmol/L [facility] BUN 12 6 - 25 mg/dL [facility] Creatinine 0.81 0.60 - 1.10 mg/dL [facility] Glucose 80 70 - 199 mg/dL [facility] Comment: Interpretive Data Fasting glucose >/= 126 [...] Calcium 9.4 8.5 - 10.3 mg/dL [facility] Bilirubin, total 0.8 0.1 - 1.2 mg/dL [facility] Protein, pl 7.2 6.5 - 8.5 g/dL [facility] Albumin 4.3 3.5 - 5.0 g/dL [facility] Alk phos 61 40 - 130 Units/L [facility] ALT 20 7 - 45 Units/L [facility] AST 24 10 - 45 Units/L [facility] Blood 07/09/2025 2:50 PM CDT 07/09/2025 3:51 PM CDT us Adrian Mccain MD LAB BLOOD ORDERABLES F inal Result [facility] Department [place] [address] from Last 3 Months Insurance [facility] [employer] Address: [facility] [address] [place] [address] [facility] [employer] Address: [address] [place] [address] [facility] [employer] Address: [address] [place] [address] Care Teams Sanitation Worker Relationship Specialty Start Date End Date Roberto Johnson MD PCP - General 04/25/20
== END 2025-08-07 14:04 | disposition home or self-care (01) ==
LOC: ANHLAB 14:07
PROVIDERS: Visit Provider Obstetrics & Gynecology
DX: O00.90 Unspecified ectopic pregnancy without intrauterine pregnancy (principal); Z3A.00 Weeks of gestation of pregnancy not specified
CPT/HCPCS: 36415; 84702

== ENCOUNTER 2025-08-11 10:24 | Emergency (ER) | payer OTHER, SELFPAY ==
--- NOTE | ~2025-08-11 | US_ITS ---
EXAMINATION: US pelvic complete w TV, 08/11/2025 11:23 CLASSIFICATION CONTROL CLERK HISTORY: evaluate for retained products of conception Comparison: None Technique: [place]-scale and color Doppler images were obtained. Findings: Uterus: Uterus anteverted 8.8 x 4.7 x 5.3 cm. . Endometrium 5 mm. Right Ovary:Right ovary 3.1 x 2.9 x 3.6 cm, no adnexal mass, normal flow. Left Ovary: Left ovary 4.5 x 3.4 x 5.3 cm, normal flow, there are complex cystic lesions the largest 4.4 x 3.6 cm. Free Fluid: None Impression: Probable complex hemorrhagic left ovarian cyst, 6 week follow-up recommended to assess resolution Reviewed, dictated and finalized at location P. SIFICATION CONTROL CLERK Impression: Probable complex hemorrhagic left ovarian cyst, 6 week follow-up recommended to assess resolution
--- NOTE | ~2025-08-11 | XR_ITS ---
Examination: XR chest 2V Clinical History: chills X 1 WEEK Comparison: None Technique: PA and Lateral Findings: Cardiomediastinal silhouette normal size and configuration. Lungs clear. No acute bony abnormality. IMPRESSION: 1. No acute cardiopulmonary findings. Reviewed, dictated and finalized at location R. T MAKER
--- OUTSIDE RECORDS SUMMARY | 2025-08-11 10:15 | XMS_ITS | Encounter Summary ---
Author Organization [facility] Healthcare Address [address] [place] [address] Care Team Providers Care It Solutions Architect Name Role Phone Maya Valdez MD Primary Care Provider [phone] Reason for Visit * Reason Comments Generalized Body Aches Started Tuesday ni ght with aches, Tuesday at 3:30 am with chills. Sensitive to the touch.1 month ago had a tubal , concerned for infection. 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 Gender Identity Not on file Sexual Orientation Not on file documented as of this encounter Last Filed Vital Signs Vital Sign Reading Time Taken Comments Blood Pressure 104/73 08/11/2025 9:52 AM DIRECTOR VIDEO Pulse 85 08/11/2025 9:52 AM DIRECTOR VIDEO Temperature 36.6 C (97.9 F) 08/11/2025 9:52 AM DIRECTOR VIDEO Respiratory Rate 20 08/11/2025 9:52 AM DIRECTOR VIDEO Oxygen Saturation 99% 08/11/2025 9:52 AM DIRECTOR VIDEO Inhaled Oxygen Concentration - - Weight 73 kg (161 lb) 08/11/2025 9:52 AM DIRECTOR VIDEO Height - - Body Mass Index 26.79 07/09/2025 2:22 PM CDT documented in this encounter Functional Status documented as of this encounter Plan of Treatment Not on file documented as of this encounter Procedures Procedure Name Priority Date/Time Associated Diagnosis Comments POCT URINALYSIS DIPSTICK Routine 08/11/2025 10:01 AM DIRECTOR VIDEO Chills documented in this encounter Results * (ABNORMAL) POCT urinalysis dipstick (08/11/2025 10:01 AM DIRECTOR VIDEO) Color, Urine, POC Dark Shanda Clarity, ur, POC Clear Clear Glucose, ur, POC Negative Negative Bilirubin, ur, POC Negative Negative Ketones, ur, POC Negative Negative Specific [place], POC 1.020 1.003 - 1.030 Blood, ur, POC Hemolyzed, trace(A) Negative pH, ur, POC 6.5 5.0 - 8.0 Protein, ur, POC Trace(A) Negative Urobilinogen, urine, POC 1.0 0.2 - 1.0 mg/dL Nitrite, ur, POC Negative Negative Leukocytes, ur, POC Negative Negative Lot Number [id number] Urine 08/11/2025 10:0 1 AM DIRECTOR VIDEO Clara Kaye SUPERVISOR METAL CANS POINT OF CARE TEST ORDERABLES Final Result documented in this encounter Visit Diagnoses Diagnosis Chills- Primary Chills (without fever) Myalgia Unspecified myalgia and myositis documented in this encounter Historical Medications * This list may reflect changes made after this encounter. FLUoxetine (PROzac) 20 mg capsule 1 capsule (20 mg total) daily added in this encounter Care Teams It Solutions Architect Relationship Specialty Start Date End Date Maya Valdez MD [address] [place], [place] [id number] PCP - General Family Medicine 08/11/25 documented as of this encounter
--- OUTSIDE RECORDS SUMMARY | 2025-08-11 10:26 | XMS_ITS | Encounter Summary ---
Author Organization [facility] Address [address] [place] [address] Care Team Providers Care Branch Services Manager Name Role Phone Zaheer Degroot MD Unavailable [phone] Rey Sigala MD Unavailable [phone] Cesilia Casillas [facility] Primary Care Provider + Rosangela Joyner [facility] Primary Care Provider + None, Provider Primary Care Provider Unavaila ble Encounter Details Date Type Department Care Team (Late st Contact Info) Description 12/10/2021 MyChart Message [facility] Family [facility] Internal Medicine [address] [address] Cesilia Casillas, [facility] [address] [place] [address] Sinus infection Social History Tobacco [...] Sex Assigned at Female 11/03/2024 10:35 AM SENIOR QUALITY ANALYST Legal Sex Female 8:25 PM CDT Gender Identity Not on file Sexual Orientation Not on file COVID-19 Exposure Response Date Recorded In the last 10 days, have yo u been in contact with someone who was confirmed or suspected to have Coronavirus/COVID-19? Unable to assess 12/11/2021 3:12 PM SENIOR QUALITY ANALYST documented as of this encounter Plan of Treatment Not on file documented as of this encounter Visit Diagnoses Not on filedocumented in this encounter Additional Health Concerns Infection Onset Date Last Indicated Resolved Time COVID-19 Rule Out 11/17/2023 11/17/2023 11/17/2023 11:10 AM SENIOR QUALITY ANALYST COVID-19 Confirmed 11/17/2023 11/17/2023 12:32 AM CDT COVID-19 Rule Out 06/07/2024 06/07/2024 06/07/2024 9:22 AM CDT COVID-19 Rule Out 11/03/2024 11/03/2024 11/03/2024 10:48 AM SENIOR QUALITY ANALYST COVID-19 Rule Out 11/24/2024 11/24/2024 11/24/2024 10:51 AM SENIOR QUALITY ANALYST Influenza - Seasonal 11/24/2024 11/24/2024 025 12:32 AM SENIOR QUALITY ANALYST Respiratory Rule Out 01/08/2025 01/08/2025 025 9:20 AM CDT Assessment Noted Time PHQ-9 Depression Total Score: 0 11/17/19 9:43 AM SENIOR QUALITY ANALYST documented as of this encounter Care Teams Branch Services Manager Relationship Specialty Start Date End Date Cesilia Casillas [facility] PCP - General Nurse Practitioner Family 11/17/21 Rosangela Joyner [facility] PCP - General Nurse Practitioner Family 07/22/23 5 None, Provider, PCP - General UNKNOWN PHYSICIAN SPECIALTY 05/29/25 Zaheer Degroot MD Consulting Physician GASTROENTEROLOGY 06/12/19 Rey Sigala MD OBGYN 06/12/19 documented as of this encounter
--- OUTSIDE RECORDS SUMMARY | 2025-08-11 10:26 | XMS_ITS | Clinical Summary ---
Author Organization [facility] Address [address] [place] [address] Care Team Providers Care Cardroom Drawing Runner Name Role Phone Maya Valdez MD Primary Care Provider [phone] Allergies Active Allergy Reactions Criticality Noted Date [...] mg total) by mouth daily 3 Active FLUoxetine (PROzac) 20 mg capsule 1 capsule (20 mg total) daily Active Active Problems Problem Noted Date Diagnosed Date Generalized anxiety disorder 08/11/2025 Vaginal bleeding 07/10/2025 of unknown anatomic location 5 Overview (07/12/2025): Telephone Number Relationship Voicemail Carson [phone] (home) Home Yes [phone] Spouse No [] PUL Card Given Working Diagnosis: PUL Date presented: 07/12/25 Brief HPI: 30 y.o. at approximately 6w4d (LMP=05/24/2025) presents with PUL. Had [facility] followed at OSH w/ normal rise but came to [facility] Ed w/ cramping/VB Ultrasound: TVUS: Empty uterus, no adnexal masses Rh Status: O Positive [] Rhogam Given Beta Trend: Had betas at [facility] in [place], [place] w/ appropriate rise: 07/01: 230 07/03: 725 07/09: bHCG 2843 ([facility] lab). US w/o YS/FP, no e/o ectopic. 07/12: Spoke to patient over the phone, she had fUS with primary OBGYN ([facility] in [place], [place]) with c/f ectopic, she got MTX, her primary OBGYN will be following her beta trend. She declines to return to [facility] and prefers to follow with her primary OBGYN. Discussed with attending, ok to discharge from our BB follow list. Lab Results Component Value Date HCG 2,843.0 (H) 07/09/2025 PLAN Next beta due: N/A, will follow with primary OBGYN in [place] Contraception: TBD [x] Signed out with attending and okay to remove from beta book. Attending Name: Amy Carlisle Gastroesophageal reflux disease 04/24/2021 Thalassemia minor 11/05/2020 Hypotensive lower esophageal sphincter Vitamin D deficiency 06/12/2019 BMI 25.0-25.9,adult 08/25/2018 Eosinophilic esophagitis 05/19/2018 Genital herpes 12/27/2017 Gastroesophageal reflux 12/27/2017 Syncope 03/21/2014 Estimated Date of Delivery Comme nts Yes 02/28/2026 Based on last me nstrual period of 05/24/2025 Encounters Date Type Department Care Team Description 08/11/2025 10:15 AM AIRPORT UTILITY WORKER Office Visit [facility] at [address] [address] Clara Kaye NP Chills (Primary Dx); Myalgia 07/12/[address] [address] Anu Riley MD 07/09/2025 3:03 PM CDT - 07/09/2025 7:36 PM CDT Emergency [facility] Emergency Department [address] [place] [address] Adrian Mccain MD Vaginal bleeding (Primary Dx); Left lower quadrant abdominal pain Discharge Disposition: Discharge to home or self care from Last 3 Months Immunizations Immunization Administration Dates Next Due DTaP, Unspecified 04/19/2002, 8,1997,07/24 Hep A, Unspecified 04/26/2009,04/18/2007 Hep B, Unspecified 02/26/1998,1997, 997 HiB 03/17/1998,1997,1997 IPV 04/20/2002, 9,1997,07/24 Influenza, Quadrivalent, Spl it, Preservative Free, Intramuscular 07/11/2019,08/16/2018 Influenza, Trivalent, Cell Culture-based MDCK, Preservative Free, Antibiotic Free, Intramuscular 07/02/2020 Influenza, Unspecified 07/11/2024,2022,08/24/2022,07/07 MMR 04/19/2002,05/30/1998 Meningococcal B, unspecified 04/26/2009 Pfizer SARS-CoV-2 Monovalent Vaccination (12+ Yrs) PURPLE 2021 Tdap 06/07/2023,08/25/2018,04/26/2009 Varicella 04/18/2007,04/19/2002 Surgical History Surgery Date Site/Laterality Comments APPENDECTOMY [...] on file Legal Sex Female 10:32 PM AIRPORT UTILITY WORKER Gender Identity Not on file Sexual Orientation Not on file Obstetrics History Para Term AB IAB SAB Ectopic Multiple Livin g Live Births 2 1 1 1 1 Date Outcome GA Total Labor Labor/2nd/3rd Weight Sex Type Anes PTL Lolis A1 A5 Name Clin Term Vaginal Living Current Summary Episode Dates Number of Fetuses Estimated Date of Delivery 07/09/2025 - Present (08/11/2025) 02/28/2026 (set by Bette Hinton MD on 07/09/2025 based on Last Menstrual Period on 05/24/2025) Dating Summary Based On SUSANA GA Diff Last Menstrual Period on 05/24/2025 02/28/2026 Working Vitals Pregravid Weight Height TWG (As of 08/11/2025) Pregrav id BMI 165.1 cm (5' 5) Date GA Fund Present FHR Mvmt BP Weight Edema Alb Glu Ket Dil/ Eff/Sta 6w4d Inpatient data not displayed here. See encounter summary. Last Filed Vital Signs Vital Sign Reading Time Taken Comments Blood Pressure 104/73 08/11/2025 9:52 AM AIRPORT UTILITY WORKER Pulse 85 08/11/2025 9:52 AM AIRPORT UTILITY WORKER Temperature 36.6 C (97.9 F) 08/11/2025 9:52 AM AIRPORT UTILITY WORKER Respiratory Rate 20 08/11/2025 9:52 AM AIRPORT UTILITY WORKER Oxygen Saturation 99% 08/11/2025 9:52 AM AIRPORT UTILITY WORKER Inhaled Oxygen Concentration - - Weight 73 kg (161 lb) 08/11/2025 9:52 AM AIRPORT UTILITY WORKER Height 165.1 cm (5' 5) 07/09/2025 2:22 PM CDT Body Mass Index 26.79 07/09/2025 2:22 PM CDT Plan of Treatment Health Maintenance Due Date Last Done Comments Cervical Cancer Screening 1997 Depression Screening 1997 Hepatitis C Screening 1997 Regular Well Visit/Exam 18-64 2015 Pneumococcal vaccine <65 (1 of 2 - PCV) 2016 HPV Vaccines (1 - 3-dose SCD M series) 2024 Covid-19 Vaccine (2 - 2024-2 6 season) 2025 2021 Influenza Vaccine (#1) 2025 , 08/05/2023, 08/24/2022, Additional history exists DTaP/Tdap/Td Vaccine (8 - Td or Tdap) 06/07/2033 06/07/2023, 08/25/2018, 04/26/2009, Additional history exists Hepatitis B Screening Completed 02/26/1998 , 1997, 1997 Varicella Vaccines Completed 04/18/2007, 04/19/2002 Procedures Procedure Name Priority Date/Time Associated Diagnosis Comments POCT URINALYSIS DIPSTICK Routine 08/11/2025 10:01 AM AIRPORT UTILITY WORKER Chills POCT GLUCOSE DEVICE Routine 07/09/2025 5 :32 [...] CDT from Last 3 Months Results * (ABNORMAL) POCT urinalysis dipstick (08/11/2025 10:01 AM AIRPORT UTILITY WORKER) Color, Urine, POC Dark Shanda Clarity, ur, POC Clear Clear Glucose, ur, POC Negative Negative Bilirubin, ur, POC Negative Negative Ketones, ur, POC Negative Negative Specific Delta, POC 1.020 1.003 - 1.030 Blood, ur, POC Hemolyzed, trace(A) Negative pH, ur, POC 6.5 5.0 - 8.0 Protein, ur, POC Trace(A) Negative Urobilinogen, urine, POC 1.0 0.2 - 1.0 mg/dL Nitrite, ur, POC Negative Negative Leukocytes, ur, POC Negative Negative Lot Number [id number] Urine 08/11/2025 10:0 1 AM AIRPORT UTILITY WORKER Clara Kaye NP POINT OF CARE TEST ORDERABLES Final Result * POCT glucose (07/09/2025 5:32 PM CDT) Glucose, POC 88 70 - 199 mg/dL Blood 07/09/2025 5:32 PM CDT 07/09/2025 5:32 PM CDT Adrian Mccain MD LAB POCT ORDERABLES - DEVICE Final Result [facility] Department [place] [address] * POCUS Female TVUS, (07/09/2025 4:21 PM [...] I agree withthe findings. Images on file. Adrian Mccain MD POCUS ORDERABLES Edite d Result - Final * (ABNORMAL) Urinalysis reflex to microscopic and culture Urine (07/09/2025 3:58 PM CDT) Color, ur Straw Yellow Clarity, ur Clear Clear [facility] Specific gravity, ur 1.006 1.003 - 1.030 [facility] pH, urine 6.5 [facility] Comment: Interpretive Data U rine pH is affected by diet, medications, systemic acid-base disturbances, and renal tubular function. pH may affect urinary stone formation. For example, urine pH below 6.0 may help reduce the tendency for calcium phosphate stones and pH greater than 6.0 may reduce the tendency for uric acid stone formation. Source: [place] [employer] Current Interpretive Data was last revised on 2017 Protein, ur ql Negative Negative [facility] Glucose, ur ql Negative Negative [facility] Ketones, ur Negative Negative [facility] Bilirubin, ur Negative Negative [facility] Blood, ur 2+(A) Negative [facility] Urobilinogen, ur <2.0 <2.0 mg/dL [facility] Nitrite, ur Negative Negative [facility] Leukocyte esterase, ur Negative Negative [facility] UA reflex comment Reflex to microscopic UA will be performed. [facility] Urine 07/09/2025 3:58 PM CDT 07/09/2025 4:05 PM CDT Morgan Montero MD LAB MICROBIOLOGY - GENER AL ORDERABLES Final Result Performing Organization Address [facility] Co de Phone Number [facility] Department [place] [address] * (ABNORMAL) Urinalysis, microscopic only (07/09/2025 3:58 PM CDT) WBC, ur 0-5 0 - 5 /HPF RBC, ur 0-2 0 - 2 /HPF [facility] Epithelial cells, squamous, ur 1-5 0 - 5 /HPF [facility] Bacteria, ur Trace(A) [facility] Culture Reflex Comment Reflex conditions for urine culture (WBC >10) not met. [facility] Urine 07/09/2025 3:58 PM CDT 07/09/2025 4:05 PM CDT Morgan Montero MD LAB URINE ORDERABLES Fin al Result Performing Organization Address [facility] Co de Phone Number [facility] Department [place] [address] * eGFR (07/09/2025 2:50 PM CDT) eGFR [...] of Race in Diagnosing Kidney Disease, JASN 2021). The CKD-EPI equation should not be used for patients with unstable renal function and has not been validated in children and those over 70. Current interpretive data was last reviewed 2021. Blood 07/09/2025 2:50 PM CDT 07/09/2025 3:51 PM CDT Adrian Mccain MD LAB BLOOD ORDERABLES F inal Result [facility] Department [place] [address] * Differential, auto (07/09/2025 2:50 PM CDT) Neutrophil abs 4.09 1.50 - 6.50 K/cumm Imm gran abs 0.03 0.00 - 0.10 K/cumm [facility] Lymphocyte abs 2.47 0.80 - 3.30 K/cumm [facility] Monocyte abs 0.51 0.20 - 0.80 K/cumm [facility] Eosinophil abs 0.05 0.00 - 0.50 K/cumm [facility] Basophil abs 0.04 0.00 - 0.10 K/cumm [facility] Neutrophil pct 56.8 % [facility] Comment: Interpretive Data Percent cell count reference ranges are not reported, since discordance with absolute values may lead to misinterpretation of CBC data. Current Interpretive Data was last revised on 2018. Imm gran pct 0.4 % [facility] Comment: Interpretive Data Percent cell count reference ranges are not reported, since discordance with absolute values may lead to misinterpretation of CBC data. Current Interpretive Data was last revised on 2018. Lymphocyte pct 34.4 % [facility] Comment: Interpretive Data Percent cell count reference ranges are not reported, since discordance with absolute values may lead to misinterpretation of CBC data. Current Interpretive Data was last revised on 2018. Monocyte pct 7.1 % [facility] Comment: Interpretive Data Percent cell count reference ranges are not reported, since discordance with absolute values may lead to misinterpretation of CBC data. Current Interpretive Data was last revised on 2018. Eosinophil pct 0.7 % [facility] Comment: Interpretive Data Percent cell count reference ranges are not reported, since discordance with absolute values may lead to misinterpretation of CBC data. Current Interpretive Data was last revised on 2018. Basophil pct 0.6 % [facility] Comment: Interpretive Data Percent cell count reference ranges are not reported, since discordance with absolute values may lead to misinterpretation of CBC data. Current Interpretive Data was last revised on 2018. Blood 07/09/2025 2:50 PM CDT 07/09/2025 3:51 PM CDT us Leah Santos MD LAB BLOOD ORDERABLES Monica corbett Result [facility] Department [place] [address] * (ABNORMAL) CBC with auto differential (07/09/2025 2:50 PM CDT) WBC 7.19 3.80 - 9.90 K/cumm Hgb 10.1(L) 11.9 - 15.5 g/dL [facility] Hct 31.5(L) 35.6 - 45.5 % [facility] Plt 177 150 - 400 K/cumm [facility] MPV Not Measured 9.1 - 12.3 fL [facility] RBC 4.68 3.90 - 5.20 M/cumm [facility] MCV 67.3(L) 81.3 - 96.4 fL [facility] MCH 21.6(L) 27.1 - 33.3 pg [facility] MCHC 32.1(L) 32.3 - 35.7 g/dL [facility] RDW CV 16.4(H) 11.1 - 14.9 % [facility] RDW SD 38.7 35.7 - 48.1 fL [facility] NRBC abs 0.00 0.00 - 0.01 K/cumm [facility] Blood Venous blood specimen / Unknown 07/09/2025 2:50 PM CDT 07/09/2025 3:51 PM CDT Adrian Mccain MD LAB BLOOD ORDERABLES F inal Result Performing Organization Address [facility] de Phone Number [facility] Department [place] [address] * ABO/Rh (07/09/2025 2:50 PM CDT) Pathologist [facility] ABO Rh O Positive Blood 07/09/2025 2:50 PM CDT 07/09/2025 3:56 PM CDT Adrian Mccain MD LAB BLOOD BANK TEST OR DERABLES Final Result Performing Organization Address [facility] [place] [address] * (ABNORMAL) hCG, blood, quantitative (07/09/2025 2:50 PM CDT) [facility] hCG, quant 2,843.0(H ) 0.0 - 5.0 [...] F inal Result Performing Organization Address [facility] de Phone Number [facility] [address] * Comprehensive metabolic panel (07/09/2025 2:50 PM CDT) [facility] Sodium 137 135 - 145 mmol/L Potassium, pl 3.9 3.3 - 4.9 mmol/L [facility] Chloride 105 97 - 110 mmol/L [facility] CO2 25 22 - 32 mmol/L [facility] Anion gap 7 2 - 15 mmol/L [facility] BUN 12 6 - 25 mg/dL [facility] Creatinine 0.81 0.60 - 1.10 mg/dL [facility] Glucose 80 70 - 199 mg/dL [facility] Comment: Interpretive Data Fasting glucose >/= [...] classification and Diagnosis of Diabetes Diabetes Care 2021; 46: S19-S40. Current interpretive data was last revised 2022. Calcium 9.4 8.5 - 10.3 mg/dL [facility] Bilirubin, total 0.8 0.1 - 1.2 mg/dL [facility] Protein, pl 7.2 6.5 - 8.5 g/dL [facility] Albumin 4.3 3.5 - 5.0 g/dL [facility] Alk phos 61 40 - 130 Units/L [facility] ALT 20 7 - 45 Units/L [facility] AST 24 10 - 45 Units/L [facility] Blood 07/09/2025 2:50 PM CDT 07/09/2025 3:51 PM CDT us Adrian Mccain MD LAB BLOOD ORDERABLES F inal Result [facility] Department [place] [address] from Last 3 Months Insurance [employer] Outcome Referrals Address: [facility] [address] [place] [address] [employer] Outcome Referrals Address: [facility] [id number] [place] [address] [facility] [employer] Care Teams Cardroom Drawing Runner Relationship Specialty Start Date End Date Maya Valdez MD [address] [place] [address] PCP - General Family Medicine 08/11/25
--- OUTSIDE RECORDS SUMMARY | 2025-08-11 10:26 | XMS_ITS | Patient Health Record ---
Author Organization [facility] Address [address] [place] [address] Care Team Providers Care Service Observer Chief Name Role Phone Dr. Maya Valdez Primary Care Provider [phone] Allergies Allergen (clinical drug ingredient) Drug/Non Drug [...] Problem Status W/U Status Risk Notes Problem Gastroesophageal reflux disease (disorder) (539279573) Chronic GERD (K21.9) Active confirmed Problem Generalized anxiety disorder (99079753) Anxiety, generalized (F41.1) Active confirmed Vital Signs Heart Rate 76 /min 06/05/2025 Temperature 97.6 degrees Fahrenheit 06/05/2025 Respiratory Rate 18 /min 06/05/2025 Height-cm 167.64 cm 06/05/2025 Oximetry 98 % 06/05/2025 Blood pressure diastolic 60 mm Hg 06/05/2025 Weight-kg 73.48 kg 06/05/2025 Height 66 in 06/05/2025 Blood pressure systolic 98 mm Hg 06/05/2025 Weight 162 lbs 06/05/2025 BMI 26.14 kg/m2 06/05/2025 Encounters Encounter Location Date Provider Diagnosis [facility] [address] [place] [address] 06/05/2025 Dr. Maya Valdez Anxiety, generalized F41.1 [...] 06/05/2025 Comprehensive Metabolic Panel 06/05/2025 Magnesium 06/05/2025 Next Appt Details Provider Name:Manjudy Rodriguez deborah, 08/13/2025 08:45:00 AM, [address] [facility], [place], [address], [phone] Insurance Providers Payer Name Payer Address Payer Phone Subscriber Number Group Number Insured Name Patient Relationship to Insured Coverage Start Date Coverage End Date [employer] [address] [place] [address] [id number] Nivia Zimmer Self - patient is the insured Medical (General) History Surgical History Surgery Date(Month/Year) appendectomy rhinoplasty
--- OUTSIDE RECORDS SUMMARY | 2025-08-11 10:26 | XMS_ITS | Encounter Summary ---
Author Organization [facility] Address [address] [place] [address] Care Team Providers Care Internetworking Technician Name Role Phone Zaheer Degroot MD Unavailable [phone] Rey Sigala MD Unavailable [phone] Casillas [facility] Primary Care Provider + Rosangela Joyner [facility] Primary Care Provider + None, Provider Primary Care Provider Unavaila ble Encounter Details Date Type Department Care Team (Late st Contact Info) Description 11/17/2021 MyChart Message Enc [facility] Family & Internal Medicine [address] [address] Cesilia Casillas, [facility] [address] [place] [address] Lab results Social History Tobacco [...] Sex Assigned at Female 11/03/2024 10:35 AM WIRE PREPARATION MACHINE TENDER Legal Sex Female 8:25 PM CDT Gender Identity Not on file Sexual Orientation Not on file COVID-19 Exposure Response Date Recorded In the last 10 days, have yo u been in contact with someone who was confirmed or suspected to have Coronavirus/COVID-19? No / Unsure 11/17/2021 9:33 AM WIRE PREPARATION MACHINE TENDER documented as of this encounter Progress Notes * Shazia Little RN - 11/18/2021 4:33 PM CST Called and spoke with DJ at [facility] lab, she states she can add these. Orders have been placed. PREPARATION MACHINE TENDER * CHAR Lopez - 11/18/2021 4:20 PM CST Is it possible to add ferritin and iron panel to her labs? PREPARATION MACHINE TENDER documented in this encounter Plan of Treatment Not on file documented as of this encounter Results * (ABNORMAL) IRON SAT PANEL (IRON,IBC,%SAT) (11/17/2021 10:10 AM WIRE PREPARATION MACHINE TENDER) [facility] IRON 128 50 - 170 MCG/DL 11/18/2021 5:25 PM WIRE PREPARATION MACHINE TENDER [facility] IRON BINDING CAPACITY 231(L) 250 - 450 MCG/DL 11/18/2021 5:25 PM WIRE PREPARATION MACHINE TENDER [facility] IRON SATURATION 55 20 - 55 % 5:25 PM WIRE PREPARATION MACHINE TENDER [facility] 11/17/2021 10:1 0 AM WIRE PREPARATION MACHINE TENDER [facility] Final Re sult [facility] [address] [place] [address], [place] [phone] * FERRITIN (11/17/2021 10:10 AM WIRE PREPARATION MACHINE TENDER) FERRITIN 99.0 8.0 - 388.0 NG/ML 11/18/2021 5:40 PM WIRE PREPARATION MACHINE TENDER [facility] 11/17/2021 10:1 0 AM WIRE PREPARATION MACHINE TENDER Cesilia Casillas [facility] Final Re sult [facility] [address] [place] [address], documented in this encounter Visit Diagnoses Diagnosis Thalassemia minor- Primary Anemia, unspecified documented in this encounter Additional Health Concerns Infection Onset Date Last Indicated Resolved Time COVID-19 Rule Out 11/17/2023 11/17/2023 11/17/2023 11:10 AM WIRE PREPARATION MACHINE TENDER COVID-19 Confirmed 11/17/2023 11/17/2023 12:32 AM CDT COVID-19 Rule Out 06/07/2024 06/07/2024 06/07/2024 9:22 AM CDT COVID-19 Rule Out 11/03/2024 11/03/2024 11/03/2024 10:48 AM WIRE PREPARATION MACHINE TENDER COVID-19 Rule Out 11/24/2024 11/24/2024 11/24/2024 10:51 AM WIRE PREPARATION MACHINE TENDER Influenza - Seasonal 11/24/2024 11/24/2024 025 12:32 AM WIRE PREPARATION MACHINE TENDER Respiratory Rule Out 01/08/2025 01/08/2025 025 9:20 AM CDT Assessment Noted Time PHQ-9 Depression Total Score: 0 11/17/19 9:43 AM WIRE PREPARATION MACHINE TENDER documented as of this encounter Care Teams Internetworking Technician Relationship Specialty Start Date End Date Cesilia Casillas [facility] PCP - General Nurse Practitioner Family 11/17/21 Rosangela Joyner [facility]- PCP - General Nurse Practitioner Family 07/22/23 5 None, Provider, PCP - General UNKNOWN PHYSICIAN SPECIALTY 05/29/25 Zaheer Degroot MD Consulting Physician GASTROENTEROLOGY 06/12/19 Rey Sigala MD OBGYN 06/12/19 documented as of this encounter
[2025-08-11 10:45] VITALS: BP 105/71; PULSE 81; RESP 17; TEMP 36.6; O2SAT 100
[2025-08-11 10:49] VITALS: RESP 16; O2SAT 100
--- NOTE | 2025-08-11 10:52 | ED.GENADULT ---
HPI - General Adult General Chief complaint: Unspecified Stated complaint: sent by for chills and achy Time Seen by Provider: 08/11/25 10:30 History of Present Illness HPI narrative: 30-year-old female present to the emergency department for evaluation for flu-like symptoms including body aches fatigue and chills. Patient's ports the initial symptoms started on Tuesday and she was having increased sensitivity in skin and symptoms progressed on Tuesday to be upper and lower extremities. . Patient reports that these symptoms skin sensitivity have improved but she is still having body aches and chills. Patient did have follow-up with urgent care today and she was encouraged to have follow-up the emergency department for further evaluation. Patient did have treatment with methotrexate on July 11 for a ectopic . Patient reports that she is still having some brown vaginal discharge. Patient denies any bright red bleeding. Patient does follow-up with Dr. Dolan. Related Data Home Medications ?Medication ?Instructions ?Recorded ?Confirmed ?Last Taken ?Type loratadine 10 mg tablet (Claritin) mg 07/14/23 07/11/25 07/14/23 08:00 History prenat.vits,clayton,[id number] tablet 07/14/23 07/11/25 07/14/23 08:00 History pantoprazole 40 mg tablet,delayed 40 mg PO QAM 04/29/25 07/11/25 Unknown History release Allergies Allergy/AdvReac Type Severity Reaction Status Date / Time Sulfa (Sulfonamide Allergy Hives Verified 08/11/25 10:49 Antibiotics) Review of Systems Review of Systems: All systems reviewed & are unremarkable except as noted in HPI and below PMFSH Past Medical History Medical History (Updated 08/11/25 @ 14:27 by Elijah Joy MD) GERD (gastroesophageal reflux disease) HSV (herpes simplex virus) infection Nexplanon insertion Surgical History Surgical History (Updated 04/29/25 @ 08:54 by Grace Hinds [facility]) H/O rhinoplasty History of appendectomy History of colposcopy Social History Social History Second hand tobacco smoke exposure: Yes Substance use: never Lack of Transportation: No Lack of Food: Never True Current Housing: I Have Housing Concerned About Future Housing: No Difficulty Paying Gas/Electric Bills: No Difficulty Paying for Meds: No Currently Unemployed: No Education: Bachelor's Degree Difficulty w/ Childcare or Family Care: No Spiritual care concerns: No Exam Narrative: APPEARANCE: Well appearing, no pain, no distress, well-nourished. HEAD: normocephalic, atraumatic. EYES: PERRLA/EOMI, conjunctivae clear. NOSE: Normal no drainage EARS:TMS clear with good light reflex. THROAT: Pharynx clear, no exudate. NECK: Supple. No adenopathy, no masses. RESPIRATORY: Airway patent, respirations nonlabored. Clear to auscultation bilaterally, no rales, rhonchi, wheezing. CARDIOVASCULAR: Regular rate and rhythm without murmurs rubs or gallops. ABDOMINAL: Soft, nontender, nondistended, normal bowel sounds MUSCULOSKELETAL: Moves all extremities. Strength/ROM intact, No edema, No calf tenderness. NEURO: Alert. Cranial nerves II through XII intact. grossly SKIN: Warm, dry. Normal Color Course Vital Signs Vital signs: Vital Signs Temperature 98 F 08/11/25 10:45 Pulse Rate 81 08/11/25 10:45 Respiratory Rate 17 08/11/25 10:45 Blood Pressure 105/71 08/11/25 10:45 Pulse Oximetry 100 08/11/25 10:45 Oxygen Delivery Room Air 08/11/25 10:45 Temperature 98 F 08/11/25 10:45 Pulse Rate 60 08/11/25 13:33 Respiratory Rate 16 08/11/25 13:33 Blood Pressure 95/60 L 08/11/25 13:33 Pulse Oximetry 97 08/11/25 13:33 Oxygen Delivery Room Air 08/11/25 10:45 Medical Decision Making [facility] Narrative Medical decision making narrative: 30-year-old female with history of recent ectopic presented emergency department for evaluation for flu-like symptoms. Patient is currently afebrile with no leukocytosis and a stable hemoglobin of 10.5, this is higher than her recent baseline. Patient has normal PT and PTT. Patient has no acute abnormalities on her CMP with a normal lactic acid. Patient's beta hCG has also decreased appropriately and is less than 2.39. Patient did have some blood on her UA but no underlying evidence of infection. Urine culture was ordered. Patient was also negative for influenza RSV and for COVID. Ultrasound was ordered and does show a complex cystic structure on the left ovary consistent with hemorrhagic cyst. I did discuss the case with her OB Gyne, dr Sigala, and he was comfortable the patient having close outpatient follow-up. I did update the patient and family and they are comfortable with plan for discharge and close follow-up. All questions concerns were addressed. Differential Diagnosis Differential Diagnosis: Ectopic , ovarian cyst, hemorrhagic cyst Vital Signs Vital Signs: Vital Signs Temperature 98 F 08/11/25 10:45 Pulse Rate 81 08/11/25 10:45 Respiratory Rate 17 08/11/25 10:45 Blood Pressure 105/71 08/11/25 10:45 Pulse Oximetry 100 08/11/25 10:45 Oxygen Delivery Room Air 08/11/25 10:45 Temperature 98 F 08/11/25 10:45 Pulse Rate 60 08/11/25 13:33 Respiratory Rate 16 08/11/25 13:33 Blood Pressure 95/60 L 08/11/25 13:33 Pulse Oximetry 97 08/11/25 13:33 Oxygen Delivery Room Air 08/11/25 10:45 Lab Data 08/11/25 11:03 08/11/25 11:02 Labs: Lab Results 08/11/25 08/11/25 08/11/25 Range/Units 11:02 11:03 11:07 WBC 6.8 (4.5-10.0) K/mm3 RBC 4.81 (4.2-5.4) M/mm3 Hgb 10.5 L (12.0-15.0) g/dL Hct 33.7 L (37.0-47.0) % MCV 70.1 L (80-100) fl MCH 21.8 L (26-34) pg MCHC 31.2 L (32-36) g/dl RDW 16.2 H (11.5-14.5) % Plt Count 162 (150-375) k/mm3 MPV TNP Immature Gran % (Auto) 0.4 (0-0.5) % Neut % (Auto) 50.1 (45.5-73.1) % Lymph % (Auto) 40.8 (18.3-44.2) % [place] % (Auto) 7.7 (2.6-8.5) % Eos % (Auto) 0.6 (0-4.4) % Baso % (Auto) 0.4 (0.2-1.2) % Lymph # (Auto) 2.76 (0.9-3.2) K/mm3 [place] # (Auto) 0.5 (0.1-0.6) K/mm3 Eos # (Auto) 0.0 (0-0.3) K/mm3 Baso # (Auto) 0.0 (0.0-0.1) K/mm3 Abs Immat Gran (auto) 0.03 (0.00-0.031) K/mm3 Absolute Neuts (auto) 3.4 (1.3-6.7) K/mm3 Absolute Nucleated RBC 0.000 (0.0-0.012) K/mm3 Band Neutrophils % Not Reportable Nucleated RBC % 0.0 (0.0-0.2) % Platelet Estimate Adequate (Adequate) % Immature Plt Fraction 4.1 (0.9-11.2) % Anisocytosis 1+ Microcytosis 1+ (NORMAL) Schistocytes None seen PT 13.8 (11.1-14.7) Seconds INR 1.0 APTT 29.9 (22.3-36.8) Seconds Sodium 137 (137-145) mmol/L Potassium 4.2 (3.4-5.0) mmol/L Chloride 105 (98-107) mmol/L Carbon Dioxide 26 (22-30) mmol/L Anion Gap 6 (4-12) mmol/L BUN 12 (7-17) mg/dL Creatinine 0.78 (0.7-1.0) mg/dL Estim Creat Clear Calc 84 ml/min Estimated GFR > 60 (59 - ) Glucose 80 (65-110) mg/dL Lactic Acid < 0.5 L (0.7-2.0) mmol/L Calcium 9.0 (8.4-10.2) mg/dL Total Bilirubin 1.1 (0.2-1.3) mg/dL AST 20 (14-36) U/L ALT 11 (6-35) U/L Alkaline Phosphatase 48 (38-126) U/L Total Protein 6.9 (6.3-8.2) g/dL Albumin 4.1 (3.5-5.1) g/dL Beta HCG, Quant < 2.39 mIU/ML Urine Color Yellow (Yellow) Urine Appearance Clear (Clear) Urine pH 7.0 (5.0-9.0) Ur Specific [place] 1.004 (1.001-1.035) Urine Protein Negative (Negative) mg/dL Urine Glucose (UA) Negative (Negative) mg/dL Urine Ketones Negative (Negative) mg/dL Ur Blood (Man) 1+ H (Negative) Urine Nitrate Negative (Negative) Urine Bilirubin Negative (Negative) Urine Urobilinogen 0.2 (<2.0) mg/dL Leukocyte Esterase Rfl Trace H (Negative) [place]/UL Urine RBC 0-2 (0-2) /hpf Urine WBC 0-5 (0-3) /hpf Ur Squamous Epith Cells Occasional (Few) /hpf Urine Bacteria 1+ H /hpf Urine Casts 0-2 POC Urine HCG, Qual Negative (Negative) Influenza A (RT-PCR) Negative (Negative) Influenza B (RT-PCR) Negative (Negative) RSV (RT-PCR) Negative (Negative) SARS-CoV-2 RNA (RT-PCR) Negative (Negative) Discharge Plan Discharge Clinical Impression: Flu-like symptoms, Hemorrhagic cyst of left ovary Patient Disposition: Home Condition: Stable Instructions: Antibiotic Form, Ovarian Cyst (ED), Viral Syndrome (ED) Additional Instructions: Ibuprofen for pain control. Continue to have close follow-up with OB Gyne. If you have any worsening symptoms please call or return to the emergency department. Patient Language: Chadian Prescriptions: No Action pantoprazole 40 mg tablet,delayed release (DR/EC) 40 mg PO QAM loratadine [Claritin] 10 mg Tablet prenat.vits,clayton,[id number] Tablet fluoxetine [Prozac] 20 mg capsule 20 mg PO DAILY Qty: 30 1RF Follow-up/Referrals: [facility] [Other] Rey Sigala MD [Physician, [employer]] UNKNOWN,DOCTOR [Non-Staff]
[2025-08-11] MEDS: LACTATED RINGERS 1,000 ML 999 ML IV CONT (11:00)
[2025-08-11 11:08] LABS: BEDSIDEPREGUCG Negative (Negative)
[2025-08-11 11:18] LABS: Add Urine Microscopic? YES; Appearance Urine Clear (Clear); Glucose Urine UA Negative (Negative); Leukocyte Esterase Ur Trace LEU/UL (Negative); Nitrate Urine Negative (Negative); Non Pathogenic Casts 0-2; Specific Grav Ur 1.004 (1.001-1.035)
[2025-08-11 11:29] LABS: Alanine Aminotransferase 11 U/L (6-35); Albumin Level 4.1 g/dL (3.5-5.1); Alkaline Phosphatase 48 U/L (38-126); Anion Gap 6 mmol/L (4-12); Aspartate Amino Transferase 20 U/L (14-36); Bilirubin,Total 1.1 mg/dL (0.2-1.3); Blood Urea Nitrogen 12 mg/dL (7-17); Calcium 9.0 mg/dL (8.4-10.2); Carbon Dioxide 26 mmol/L (22-30); Chloride 105 mmol/L (98-107); Estimated CRCL calculation 84 ml/min; Estimated Glomerular Filt Rate > 60; Glucose 80 mg/dL (65-110); Potassium 4.2 mmol/L (3.4-5.0); Sodium 137 mmol/L (137-145); Total Protein 6.9 g/dL (6.3-8.2)
[2025-08-11 11:37] LABS: INR 1.0; Prothrombin Time 13.8 Seconds (11.1-14.7)
[2025-08-11 11:38] LABS: Partial Thromboplastin Time 29.9 Seconds (22.3-36.8)
[2025-08-11 11:42] LABS: Hematocrit 33.7 % (37.0-47.0); Hemoglobin 10.5 g/dL (12.0-15.0); Immature Granulocyte Percent A 0.4 % (0-0.5); Immature Platelet Fraction Pct 4.1 % (0.9-11.2); Lymphocytes Absolute Auto 2.76 K/mm3 (0.9-3.2); Mean Corpuscular HGB Conc 31.2 g/dl (32-36); Mean Corpuscular Hemoglobin 21.8 pg (26-34); Mean Corpuscular Volume 70.1 fl (80-100); Nucleated Red Blood Cells Absolute Auto 0.000 K/mm3 (0.0-0.012); Nucleated Red Blood Cells Perc 0.0 % (0.0-0.2); Platelet Count Result 162 k/mm3 (150-375); Red Blood Count 4.81 M/mm3 (4.2-5.4); White Blood Count 6.8 K/mm3 (4.5-10.0)
[2025-08-11 11:49] LABS: Influenza A QL RT-PCR Negative (Negative); Influenza B QL RT-PCR Negative (Negative); RSV RNA, RT-PCR Negative (Negative); SARS-CoV-2 RNA PCR Negative (Negative)
[2025-08-11 12:08] LABS: Anisocytosis 1+; Microcytosis 1+ (NORMAL); Schistocytes None Seen
[2025-08-11 12:20] LABS: Beta HCG Quantitative < 2.39 mIU/ML
[2025-08-11 13:33] VITALS: BP 95/60; PULSE 60; RESP 16; O2SAT 97
== END 2025-08-11 15:02 | disposition home or self-care (01) ==
PROVIDERS: Emergency Provider Emergency Medicine
DX: J11.1 Influenza due to unidentified influenza virus with other respiratory manifestations (principal); N83.202 Unspecified ovarian cyst, left side; Z20.822 Contact with and (suspected) exposure to COVID-19; K21.9 Gastro-esophageal reflux disease without esophagitis; Z77.22 Contact with and (suspected) exposure to environmental tobacco smoke (acute) (chronic)
CPT/HCPCS: 36415; 71046; 76830; 76856; 80053; 81001; 81025; 83605; 84702; 85025; 85055; 85610; 85730; 87637; 96360; 99284; J7120